=== PATIENT | female | born 1990 | race African-American/Black ===

== ENCOUNTER 2020-02-03 14:57 | Emergency (ER) | payer OTHER ==
--- NOTE | 2020-02-03 15:14 | PDOC ---
Rapid Medical Evaluation Time Seen by Provider: 02/03/20 15:13 Medical Evaluation: 02/03/20 15:13 Pt presents for evaluation of r3rd finger pain and swelling. Denies trauma Exam: TTP and fluctuance to the PIP Orders: x-ray Pt to proceed to the ER for further evaluation Discharge Disposition - Diagnosis Finger pain, right - Referrals - Patient Instructions - Post Discharge Activity
[2020-02-03 15:18] VITALS: BP 114/67; PULSE 95; TEMP 97; BMI 23.3
--- NOTE | 2020-02-03 16:00 | PDOC ---
History of Present Illness - General Chief Complaint: Pain Stated Complaint: LT MIDDLE FINGER SWOLLEN Time Seen by Provider: 02/03/20 15:13 - History of Present Illness Initial Comments: 02/03/20 15:58 29-year-old female no comorbidities presents for left finger pain after slamming her finger in a car door last night Past History - Medical History Allergies/Adverse Reactions: Allergies Allergy/AdvReac Type Severity Reaction Status Date / Time No Known Allergies Allergy Verified 02/03/20 15:18 COPD: No - Reproductive History Is Patient Now?: No - Psycho-Social/Smoking History Smoking History: Never smoked Review of Systems - Review of Systems Musculoskeletal: Yes: See HPI, Joint Pain *Physical Exam - Vital Signs Last Vital Signs Temp Pulse Resp BP Pulse Ox 97 F L 95 H 18 114/67 98 02/03/20 15:16 02/03/20 15:16 02/03/20 15:16 02/03/20 15:16 02/03/20 15:16 - Physical Exam 02/03/20 15:58 Swelling at the left finger middle finger, decreased range of motion FDS and FDP work independently there appears to be a rotational deformity at the DIPJ oth erwise neurovascular intact Medical Decision Making - Medical Decision Making 02/03/20 15:59 There is a comminuted fracture at the middle phalanx. Splint was applied orthopedic hand surgery follow-up was stressed I have reviewed the pathophysiology with the patient. They are in agreement with the treatment plan all questions were answered to their satisfaction. Understanding for follow-up without fail was also conveyed to the patient. Again they are in agreement. Discharge - Discharge Information Problems reviewed: Yes Clinical Impression/Diagnosis: Finger pain, right, Fracture of phalanx of left middle finger Condition: Stable Disposition: HOME - Admission No - Follow up/Referral Referrals: Eladio Elise [Primary Care Provider] - Miguel Mendiola MD [Staff Physician] - - Patient Discharge Instructions Additional Instructions: Tylenol for pain. Avoid anti-inflammatories. Return to the emergency room for further issues and without fail follow-up with orthopedic hand surgery in 1 to 2 days for further evaluation and treatment options. - Post Discharge Activity
== END 2020-02-03 16:32 | disposition home or self-care (01) ==
LOC: JERFT 14:57
DX: M79.644 Pain in right finger(s) (principal)
CPT/HCPCS: 73130-TC-LT-FY; 99284-25

== ENCOUNTER 2020-02-06 13:13 | Day surgery (SDC) | payer OTHER ==
[2020-02-04 16:42] VITALS: BMI 22.4
[2020-02-06] MEDS ORDERED: LIDOCAINE HCL 2% (20ML MULTI-DOSE VIAL) ONE (14:21)
[2020-02-06] MEDS ORDERED: BUPIVACAINE HCL/PF 0.25% (2.5MG/ML) 10 ML VIAL ONE (14:21)
[2020-02-06] MEDS ORDERED: PROPOFOL 20 ML ONE ×2 (14:29)
[2020-02-06] MEDS ORDERED: SUCCINYLCHOLINE CHLORIDE 200 MG/10 ML SYRINGE ONE (14:29)
[2020-02-06] MEDS ORDERED: MIDAZOLAM HCL 2 MG/2 ML SINGLE DOSE VIAL ONE (14:31)
[2020-02-06] MEDS ORDERED: LIDOCAINE HCL/PF 2% SDV 5ML VIAL ONE (15:02)
[2020-02-06] MEDS ORDERED: LIDOCAINE HCL 2% JELLY (5 ML/TUBE) ONE (15:03)
[2020-02-06] MEDS ORDERED: KETOROLAC TROMETHAMINE 30 MG/1 ML VIAL ONE (15:09)
[2020-02-06] MEDS ORDERED: ONDANSETRON 4 MG/2 ML VIAL ONE (15:09)
[2020-02-06] MEDS ORDERED: DEXAMETHASONE SOD PHOSPHATE 4 MG/1 ML VIAL ONE (15:09)
[2020-02-06] MEDS ORDERED: BUPIVACAINE HCL/PF 0.25% (2.5MG/ML) 10 ML VIAL IJ ONE (15:41)
[2020-02-06] MEDS ORDERED: oxyCODONE HCL 5 MG TABLET PO PRN ×2 (16:06)
[2020-02-06] MEDS ORDERED: PROMETHAZINE HCL 25 MG/1 ML VIAL IVPUSH PRN (16:06)
[2020-02-06] MEDS ORDERED: ONDANSETRON 4 MG/2 ML VIAL IVPUSH PRN (16:06)
--- NOTE | 2020-02-06 16:24 | OP ---
DATE OF OPERATION: 02/06/2020 PREOPERATIVE DIAGNOSIS: Left long finger middle phalanx fracture, displaced. POSTOPERATIVE DIAGNOSIS: Left long finger middle phalanx fracture, displaced. OPERATIVE PROCEDURE: Closed reduction, percutaneous pinning of left long finger middle phalanx fracture. SURGEON: Valerie Danielle MD. PIANO PLAYER: SHARON Odonnell. ANESTHESIA: General anesthesia. COMPLICATIONS: None. ESTIMATED BLOOD LOSS: Minimal. INDICATION FOR PROCEDURE: The patient presented with the above findings, indicated for operative treatment. Risks, benefits, and alternatives were discussed with the patient at length. Proper informed consent was obtained. DESCRIPTION OF PROCEDURE: After proper identification of the patient and correct operative site, patient was brought to the operating room and placed supine on the operating room table, all bony prominences well padded. General anesthesia was given timeout procedure was performed. Left upper extremity was prepped and draped in the usual sterile fashion. Closed reduction was performed, obtaining clinically satisfactory alignment as well as radiographically acceptable alignment. A 0.035 K-wire was then placed in the tip of the finger across the DIP joint, securing intramedullary fixation and purchase on the proximal aspect of the middle phalanx, securely holding the fascia. For rotational control, a 2nd wire was placed obliquely across the fracture site. This provided good, stable fixation and satisfactory alignment. Pins were cut short and bent, and sterile dressing was applied. Splint was placed. Patient was reversed from anesthesia, brought to recovery in stable condition. Davy Massey, the clinical services assistant, was integral throughout the procedure. He was necessary to hold reduction while pins were placed. This could not have been done without a skilled operative clinical services assistant. VALERIE DANIELLE M.D. [id number]
[2020-02-06] MEDS ORDERED: oxyCODONE HCL 5 MG TABLET ONE (16:53)
[2020-02-06 17:20] VITALS: BP 103/64; PULSE 58; TEMP 98
--- OUTSIDE RECORDS SUMMARY | 2020-02-06 19:09 | XMS ---
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 0.6 % 0.0 - Normal (applies Immature [facility] Granulocytes % 0.8 % to non-numeric Granulocytes % [facility] results) System ID Date Data Source [id number] 06/26/2017 02:10:00 PM EST [facility] System Name Value Range Interpretation Description Data Sup porting Code Source(s) Document(s ) pH 7.366 7.350 - Normal (applies pH [facility] {pH_unit 7.450 pH to non-numeric Health s} units results) System Carbon dioxide 39.1 32.0 - Normal (applies pCO2, [facility] [Partial {mm_Hg} 45.0 mm to non-numeric Arterial Health pressure] in Hg results) System Arterial blood Bicarbonate 21.9 20.0 - Normal (applies HCO3 [facility] [Moles/volume] mmol/L 26.0 to non-numeric Health in Venous mmol/L results) System blood Base Excess. -2.6 -3 - +3 Below low normal Base Excess. [facility] mmol/L mmol/L Health System ID Date Data Source [id number] 06/26/2017 02:10:00 PM M[facility]IC[facility] System Name Value Range Interpretation Description Data Sup porting Code Source(s) Document(s ) pH 7.303 7.350 - Below low normal pH [facility] {pH_unit 7.450 pH Health s} units System Carbon dioxide 48.4 32.0 - Above high normal pCO2, [facility] [Partial {mm_Hg} 45.0 mm Arterial Health pressure] in Hg System Arterial blood Bicarbonate 23.2 20.0 - Normal (applies HCO3 [facility] [Moles/volume] mmol/L 26.0 to non-numeric Health in Venous mmol/L results) System blood Base Excess. -2.2 -3 - +3 Below low normal Base Excess. [facility] mmol/L mmol/L Health System ID Date Data Source [id number] 06/26/2017 02:10:00 PM [facility] System Name Value Range Interpretation Description Data Sup porting Code Source(s) Document(s ) Type O Normal (applies Type [facility] to non-numeric Health System results) D Ab [Titer] Positive Normal (applies Rh [facility] in Serum or to non-numeric Health System Plasma results) Antibody Negative Normal (applies Antibody [facility] Screen to non-numeric Screen Health System results) ID Date Data Source [id number] 06/26/2017 02:10:00 PM EST [facility] System Name Value Range Interpretation Description Data Sup porting Code Source(s) Document(s ) HIV test, Negative Normal (applies to HIV test, [facility] RAPID non-numeric RAPID Health System (antibody results) (antibody testing testing only) only) PLEASE NOTE:If rapid HIV test is negativ e, this is a final report.If rapid HIV test is positive: THIS IS A PRELIMINARY REPO RT - CONFIRMATION IS PENDING.Confirmed results must be considered in making a d iagnosis related to HIV infection. ID Date Data Source [id number] 06/26/2017 02:10:00 PM EST [facility] System Name Value Range Interpretation Description Data Sup porting Code Source(s) Document(s ) Color Yellow Yellow Normal (applies Color [facility] to non-numeric Health results) System Appearance of HAZY Clear Normal (applies Urine [facility] Urine to non-numeric Appearance Health results) System Specific 1.008 1.001 - Normal (applies Urine Specific [facility] gravity of 1.035 to non-numeric [facility] Urine results) System pH.. 7.0 4.6 - 8.0 Normal (applies pH.. [facility] {pH_unit pH units to non-numeric Health s} results) System Glucose, UA NEG < 50 mg/dl Normal (applies Glucose, UA [facility] to non-numeric Health results) System Protein NEG < 30 mg/dl Normal (applies Protein [facility] [Mass/volume] to non-numeric Health in Serum or results) System Plasma Bilirubin NEG Negative Normal (applies Bilirubin [facility] Urine Sm to Lg to non-numeric Urine Health results) System Urobilinogen < 2.0 Normal (applies Urobilinogen [facility] [Mass/volume] to non-numeric UA Health in Urine results) System Reference Range: Negative or <=2.0 Ketones > =80 <TR mg/dL Abnormal Ketones UA [facility] [Mass/volume] in (applies to Health Syst em Urine non-numeric results) Nitrate+Nitrite Negative Negative Normal (applies Nitrite [facility] [Mass/volume] in Neg/Pos to non-numeric Health S ystem Unspecified results) specimen Leukocyte NEG Negative Tr Normal (applies Leukocyte [facility] esterase to Lg to non-numeric Esterase Health System [Units/volume] in results) Concentration Urine Leukocytes 3 {/HPF} 0 - 2 /HPF Normal (applies White Blood [facility] [#/volume] in to non-numeric Cells Health Syst em Unspecified results) specimen by Automated count Red Blood Cells 1 {/HPF} 0 - 1 /HPF Normal (applies Red Blood Cells [facility] to non-numeric Health System results) Epithelial cells 20 {/HPF} 0 - 3 /HPF Normal (applies Epithelial Megan ls [facility] [Presence] in to non-numeric Health Syst em Unspecified results) specimen by Wet preparation Hyaline casts 3 {/LPF} 0 - 1 /LPF Abnormal Hyaline Casts [facility] [#/area] in Urine (applies to Health Sys tem sediment by non-numeric Microscopy high results) power field Mucus RARE 0 - 1 /LPF Normal (applies Mucus [facility] to non-numeric Health System results) Bacteria FEW 0 - 5 /HPF Normal (applies Bacteria [facility] [Presence] in to non-numeric Health Syst em Unspecified results) specimen Urine Blood NEG Negative Sm Normal (applies Urine Blood [facility] to Lg to non-numeric Health System results) ID Date Data Source [id number] 06/26/2017 02:10:00 PM EST [facility] System Name Value Range Interpretation Description Data Sup porting Code Source(s) Document(s ) aPTT in Blood 24.4 25.1 - Below low normal Activated [facility] by {Second 36.5 Partial Health Coagulation s} Seconds Thromboplastin System assay Time ID Date Data Source [id number] 06/26/2017 02:10:00 PM EST [facility] System Name Value Range Interpretation Description Data Sup porting Code Source(s) Document(s ) Prothrombin 11.20 10.00 - Normal (applies Prothrombin [facility] time (PT) {seconds 13.60 to non-numeric time (PT) Health } seconds results) System INR in Blood 0.99 0.70 - Normal (applies INR Result [facility] by Coagulation {Ratio} 1.10 to non-numeric Health assay Ratio results) System Normal = 0.7-1.1Therapeutic = 2.0-3.0Mec hanical Heart = 3.0-4.5 ID Date Data Source [id number] 06/26/2017 02:10:00 PM EST [facility] System Name Value Range Interpretation Description Data Sup porting Code Source(s) Document(s ) Leukocytes 6.2 4.8 - Normal (applies WBC Count [facility] [#/volume] in {10^3_u 10.8 to non-numeric Health Unspecified L} 10^3 uL results) System specimen by Automated count Erythrocytes 3.25 4.20 - Below low normal RBC Count [facility] [#/volume] in {10^6_u 5.40 Health Blood by L} 10^6 uL System Automated count Hemoglobin 8.7 12.0 - Below low normal Hemoglobin [facility] [Mass/volume] in {gm/dL} 16.0 Health Blood gm/dL System Hematocrit 28.8 % 37.0 - Below low normal Hematocrit [facility] [Volume 47.0 % Health Fraction] of System Blood Erythrocyte mean 88.6 fl 81.0 - Normal (applies MCV [facility] corpuscular 99.0 fl to non-numeric Health volume [Entitic results) System volume] by Automated count Erythrocyte mean 26.8 pg 27.0 - Below low normal MCH [facility] corpuscular 31.0 pg Health hemoglobin System [Entitic mass] by Automated count Erythrocyte mean 30.2 30.0 - Normal (applies MCHC [facility] corpuscular {gm/dL} 35.0 to non-numeric Health hemoglobin gm/dL results) System concentration [Mass/volume] by Automated count Erythrocyte 15.7 % 11.5 - Above high RDW-CV [facility] distribution 14.5 % normal Health width [Entitic System volume] by Automated count Platelets 176 130 - Normal (applies Platelet Count [facility] [#/volume] in {10^3_u 400 to non-numeric Health Plasma by L} 10^3 uL results) System Automated count Platelet mean 10.7 fl 8.6 - Normal (applies MPV [facility] volume [Entitic 13.5 fl to non-numeric Health volume] in Blood results) System by Automated count Nucleated 0.0 0.0 - Normal (applies NRBC % [facility] erythrocytes {/100_W 0.2 to non-numeric Health [#/volume] in BC} /100 results) System Body fluid WBC NRBC # 0.00 0.00 - Normal (applies NRBC # [facility] {10^3_u 0.01 to non-numeric Health L} 10^3 uL results) System Neutrophils/100 68.1 % 55.0 - Normal (applies Neutrophil % [facility]pidio tabitha leukocytes in 75.0 % to non-numeric Health Blood by results) System Automated count Neutrophils 4.2 Normal (applies Neutrophil # [facility] [#/volume] in {10^3_u to non-numeric Health Body fluid L} results) System Lymphocytes 20.8 % 15.0 - Normal (applies Lymphocyte % [facility] [#/volume] in 41.0 % to non-numeric Health Blood by results) System Automated count Lymphocyte # 1.3 1.0 - Normal (applies Lymphocyte # [facility] {10^3_u 4.8 to non-numeric Health L} 10^3 uL results) System Monocytes/100 9.8 % 2.0 - Above high Monocyte % [facility] leukocytes in 9.0 % normal Health Blood System Monocytes 0.6 Normal (applies Monocyte # [facility] [#/volume] in {10^3_u to non-numeric Health Blood by Manual L} results) System count Eosinophils/100 0.2 % 0.0 - Normal (applies Eosinophil % [facility] tabitha leukocytes in 5.0 % to non-numeric Health Unspecified results) System specimen Eosinophils 0.01 0.00 - Normal (applies Eosinophil # [facility] [#/volume] in {10^3_u 0.50 to non-numeric Health Blood L} 10^3 uL results) System Basophils/100 0.3 % 0.0 - Normal (applies Basophil % [facility] leukocytes in 1.0 % to non-numeric Health Unspecified results) System specimen by Manual count Basophils 0.02 0.00 - Normal (applies Basophil # [facility] [#/volume] in {10^3_u 0.10 to non-numeric Health Blood by L} 10^3 uL results) System Automated count Immature 0.05 0.00 - Normal (applies Immature [facility] Granulocytes # {10^3_u 0.09 to non-numeric Granulocytes # Healt h L} 10^3 uL results) System Immature 0.8 % 0.0 - Normal (applies Immature [facility] Granulocytes % 0.8 % to non-numeric Granulocytes % [facility] results) System ID Date Data Source [id number] 06/26/2017 02:10:00 PM EST [facility] System Name Value Range Interpretation Description Data Sup porting Code Source(s) Document(s ) Sodium 137 135 - Normal (applies Sodium, Serum [facility] [Moles/volume] in mmol/L 145 to non-numeric Health Serum or Plasma mmol/L results) System Potassium 3.9 3.5 - Normal (applies Potassium, [facility] [Mass/volume] in mmol/L 5.0 to non-numeric Serum Health Serum or Plasma mmol/L results) System Chloride 105 101 - Normal (applies Chloride, [facility] [Moles/volume] in mmol/L 111 to non-numeric Serum Health Serum or Plasma mmol/L results) System Carbon dioxide, 22.8 21.0 - Normal (applies CO2, Serum [facility] total mmol/L 31.0 to non-numeric Health [Moles/volume] in mmol/L results) System Serum or Plasma Total Protein 6.4 6.4 - Normal (applies Total Protein [facility] mg/dl 8.1 to non-numeric Health mg/dl results) System Glucose 73 65 - Normal (applies Glucose, [facility] [Mass/volume] in mg/dL 110 to non-numeric Serum Health Serum or Plasma mg/dL results) System Urea nitrogen 4 mg/dl 7 - 18 Below low normal Blood Urea [facility] [Mass/volume] in mg/dl Nitrogen, Health Serum or Plasma Serum System Creatinine 0.37 0.50 - Below low normal Creatinine, [facility] [Mass/volume] in mg/dl 1.20 Serum Health Serum or Plasma mg/dl System Alkaline 165 42 - Above high Alkaline [facility] phosphatase {IU/L} 121 normal Phosphatase, Health isoenzymes IU/L Serum System [Enzymatic activity/volume] in Serum or Plasma by Heat stability Bilirubin.total 0.5 0.2 - Normal (applies Bilirubin, [facility] [Mass/volume] in mg/dl 1.2 to non-numeric Serum Total Health Serum or Plasma mg/dl results) System Direct Bilirubin 0.1 0.0 - Normal (applies Direct [facility] mg/dl 0.4 to non-numeric Bilirubin Health mg/dl results) System Aspartate 16 10 - 42 Normal (applies Aspartate [facility] aminotransferase {IU/L} IU/L to non-numeric Transaminase, Heal th [Enzymatic results) Serum System activity/volume] in Serum or Plasma by With P-5'-P Albumin 3.4 3.2 - Normal (applies Albumin, [facility] [Mass/volume] in {gm/dl} 5.5 to non-numeric Serum Health Serum or Plasma gm/dl results) System I. Phosphorus 3.5 2.6 - Normal (applies I. Phosphorus [facility] mg/dl 4.9 to non-numeric Health mg/dl results) System Alanine 10 10 - 42 Normal (applies Alanine [facility] aminotransferase {IU/L} IU/L to non-numeric Aminotransfer Heal th [Enzymatic results) ase, Serum System activity/volume] in Serum or Plasma Calcium 8.5 8.4 - Normal (applies Calcium, [facility] [Mass/volume] in mg/dl 10.2 to non-numeric Total Serum Health Serum or Plasma mg/dl results) System A/G Ratio 1.13 Normal (applies A/G Ratio [facility] to non-numeric Health results) System Urate 3.7 2.3 - Normal (applies Uric Acid, [facility] [Mass/volume] in mg/dl 7.5 to non-numeric Serum Health Serum or Plasma mg/dl results) System Anion gap in Serum 9.20 Normal (applies Anion Gap Elpidio tabitha or Plasma mmol/L to non-numeric Health results) System Glomerular > 90 Normal (applies GFR [facility] filtration to non-numeric Health rate/1.73 sq results) System M.predicted [Volume Rate/Area] in Serum or Plasma by Creatinine-based formula (CKD-EPI) eGFR will provide clinicians with a more accurate indicator of renal function then the serum creatinine. The eGFR is automa tically calculated from an empiric formula (endorsed by the [employer] ion) which incorporates age, sex, and race.Clinicians may notice surprisingly low GFR's with serum creatinine valueswithin normal range- particularly in elderly wo men (with low muscle mass).In the hospital setting, the eGFR should add an element of safety in drug dosing, in assessing the risk of IV contrast administration, and in assessing vascular risk.The NKF staging system is as follows:Normal: eGFR >90 with no kidney markersStage 1: eGFR >90 with kidney markers*Stage 2: eGFR 60- 89Stage 3: eGFR 30-59Stage 4: eGFR 15-29Stage 5: eGFR <15 (usually requir ing dialysis)*Markers include: Proteinuria, Hematuria, abnormal imaging-studies, or other blood or urine test abnormalities ID Date Data Source [id number] 06/26/2017 02:10:00 PM EST [facility] System Name Value Range Interpretation Description Data Source(s ) Supporting Code Document(s ) Reagin Ab Non-react Normal (applies to RPR. [facility] [Presence] scott non-numeric Health System in Serum by results) RPR ID Date Data Source [id number] 10/24/2016 06:26:00 PM EDT [facility] System Name Value Range Interpretation Description Data Sup porting Code Source(s) Document(s ) hCG 2126.84 Normal (applies hCG [facility] Quantitative {mIU/mL} to non-numeric Quantitative Health results) System Negative = <5 mIU/mLAPPROXIMATE GEST. AG E APPROXIMATE HCG mIU/ML 0.2 - 1 week 5 - 50 1 - 2 w eeks 50 - 500 2 - 3 weeks 100 - 5,000 3 - 4 weeks 500 - 10,000 4 - 5 weeks 1,000 - 50,000 5 - 6 weeks 10,000 - 100,000 6 - 8 weeks 15,000 - 200,000 8 - 12 weeks 10,000 - 1 00,000HCG levels between 5-25 mIU/mL may be indicative of early . Correlati on with other clinical findings and/or repeat of HCG quantitative testing recommened. ID Date Data Source [id number] 10/24/2016 04:55:00 PM EDT [facility] System Name Value Range Interpretation Description Data Sup porting Code Source(s) Document(s ) Deprecated Micro Normal (applies Aerobic [facility] Bacteria Result to non-numeric Culture, Urine Health identified in Final results) System Urine by Culture Aerobe Reading culture Note::< 10,000 CFU/ML ID Date Data Source [id number] 10/24/2016 04:55:00 PM EDT [facility] System Name Value Range Interpretation Description Data Sup porting Code Source(s) Document(s ) Color YELLOW Yellow Normal (applies Color [facility] to non-numeric Health results) System Appearance of CLEAR Clear Normal (applies Urine [facility] Urine to non-numeric Appearance Health results) System Specific > 1.030 Normal (applies Urine Specific [facility] gravity of to non-numeric [facility] Urine results) System pH.. 6.0 4.6 - 8.0 Normal (applies pH.. [facility] {pH_units} pH units to non-numeric Health results) System Glucose, UA NEGATIVE < 50 Normal (applies Glucose, UA [facility] mg/dl to non-numeric Health results) System Protein TRACE < 30 Normal (applies Protein [facility] [Mass/volume] mg/dl to non-numeric Health in Serum or results) System Plasma Bilirubin NEGATIVE Negative Normal (applies Bilirubin [facility] Urine Sm to Lg to non-numeric Urine Health results) System Urobilinogen 0.2 mg/dL 0.2 - 1.0 Normal (applies Urobilinogen [facility] [Mass/volume] mg/dL to non-numeric UA Health in Urine results) System Ketones NEGATIVE Negative Normal (applies Ketones UA [facility] [Mass/volume] mg/dL to non-numeric Health in Urine results) System Nitrate+Nitrit NEGATIVE Negative Normal (applies Nitrite [facility] e Neg/Pos to non-numeric Health [Mass/volume] results) System in Unspecified specimen Leukocyte NEGATIVE Negative Normal (applies Leukocyte [facility] esterase Tr to Lg to non-numeric Esterase Health [Units/volume] results) Concentration System in Urine Leukocytes 3 {/HPF} 0 - 2 Normal (applies White Blood [facility] [#/volume] in /HPF to non-numeric Cells Health Unspecified results) System specimen by Automated count Red Blood 2 {/HPF} 0 - 1 Normal (applies Red Blood [facility] Cells /HPF to non-numeric Cells Health results) System Epithelial 5 {/HPF} 0 - 3 Normal (applies Epithelial [facility] cells /HPF to non-numeric Cells Health [Presence] in results) System Unspecified specimen by Wet preparation Mucus 2+ 0 - 1 Normal (applies Mucus [facility] /LPF to non-numeric Health results) System Urine Blood NEGATIVE Negative Normal (applies Urine Blood [facility] Sm to Lg to non-numeric Health results) System ID Date Data Source [id number] 10/24/2016 04:55:00 PM EDT [facility] Name Value Range Interpretation Description Data Sup porting Code Source(s) Document(s ) Leukocytes 6.9 4.8 - Normal (applies WBC Count [facility] [#/volume] in {10^3_u 10.8 to non-numeric Health Unspecified L} 10^3 uL results) System specimen by Automated count Erythrocytes 3.48 3.80 - Below low normal RBC Count [facility] [#/volume] in {10^6_u 5.20 Health Blood by L} 10^6 uL System Automated count Hemoglobin 11.7 12.0 - Below low normal Hemoglobin [facility] [Mass/volume] in {gm/dL} 16.0 Health Blood gm/dL System Hematocrit 33.7 % 36.0 - Below low normal Hematocrit [facility] [Volume 46.0 % Health Fraction] of System Blood Erythrocyte mean 96.8 fl 83.0 - Normal (applies MCV [facility] corpuscular 98.0 fl to non-numeric Health volume [Entitic results) System volume] by Automated count Erythrocyte mean 33.6 pg 26.0 - Normal (applies MCH [facility] corpuscular 34.0 pg to non-numeric Health hemoglobin results) System [Entitic mass] by Automated count Erythrocyte mean 34.7 33.0 - Normal (applies MCHC [facility] corpuscular {gm/dL} 37.0 to non-numeric Health hemoglobin gm/dL results) System concentration [Mass/volume] by Automated count Erythrocyte 12.2 % 11.5 - Normal (applies RDW-CV [facility] distribution 14.5 % to non-numeric Health width [Entitic results) System volume] by Automated count Platelets 288 130 - Normal (applies Platelet Count [facility] [#/volume] in {10^3_u 400 to non-numeric Health Plasma by L} 10^3 uL results) System Automated count Platelet mean 10.9 fl 7.4 - Above high MPV [facility] volume [Entitic 10.4 fl normal Health volume] in Blood System by Automated count Monocytes 0.7 0.3 - Normal (applies Monocyte # [facility] [#/volume] in {10^3_u 0.9 to non-numeric Health Blood by Manual L} 10^3 uL results) System count Eosinophils 0.11 0.05 - Normal (applies Eosinophil # [facility] [#/volume] in {10^3_u 0.30 to non-numeric Health Blood L} 10^3 uL results) System Neutrophils 4.3 2.0 - Normal (applies Neutrophil # [facility] [#/volume] in {10^3_u 8.1 to non-numeric Health Body fluid L} 10^3 uL results) System Basophils 0.02 0.00 - Normal (applies Basophil # [facility] [#/volume] in {10^3_u 0.10 to non-numeric Health Blood by L} 10^3 uL results) System Automated count Lymphocyte # 1.8 1.0 - Normal (applies Lymphocyte # [facility] {10^3_u 5.5 to non-numeric Health L} 10^3 uL results) System Neutrophils/100 62.1 % 55.0 - Normal (applies Neutrophil % [facility] tabitha leukocytes in 75.0 % to non-numeric Health Blood by results) System Automated count Monocytes/100 9.9 % Normal (applies Monocyte % [facility] leukocytes in to non-numeric Health Blood results) System Eosinophils/100 1.6 % 0.0 - Normal (applies Eosinophil % [facility] tabitha leukocytes in 4.0 % to non-numeric Health Unspecified results) System specimen Basophils/100 0.3 % 0.0 - Normal (applies Basophil % [facility] leukocytes in 1.0 % to non-numeric Health Unspecified results) System specimen by Manual count Lymphocytes 25.8 % 21.0 - Normal (applies Lymphocyte % [facility] [#/volume] in 51.0 % to non-numeric Health Blood by results) System Automated count Immature 0.3 % 0.0 - Normal (applies Immature [facility] Granulocytes % 0.8 % to non-numeric Granulocytes % Healt h results) System Nucleated 0.0 0.0 - Normal (applies NRBC % [facility] erythrocytes {/100_W 0.0 to non-numeric Health [#/volume] in BC} /100 results) System Body fluid WBC Immature 0.02 0.00 - Normal (applies Immature [facility] Granulocytes # {10^3_u 0.09 to non-numeric Granulocytes # Healt h L} 10^3 uL results) System NRBC # 0.00 0.90 - Below low normal NRBC # [facility] {10^3_u 11.20 Health L} 10^3 uL System ID Date Data Source [id number] 10/24/2016 04:55:00 PM EDT [facility] System Name Value Range Interpretation Description Data Sup porting Code Source(s) Document(s ) Sodium 137 137 - Normal (applies Sodium, Serum [facility] [Moles/volume] in mmol/L 145 to non-numeric Health Serum or Plasma mmol/L results) System Potassium 4.1 3.6 - Normal (applies Potassium, [facility] [Mass/volume] in mmol/L 5.0 to non-numeric Serum Health Serum or Plasma mmol/L results) System Chloride 104 98 - Normal (applies Chloride, [facility] [Moles/volume] in mmol/L 107 to non-numeric Serum Health Serum or Plasma mmol/L results) System Carbon dioxide, 25.0 22.0 - Normal (applies CO2, Serum [facility] total mmol/L 30.0 to non-numeric Health [Moles/volume] in mmol/L results) System Serum or Plasma Total Protein 6.9 6.3 - Normal (applies Total Protein [facility] mg/dl 8.2 to non-numeric Health mg/dl results) System Glucose 92 65 - Normal (applies Glucose, [facility] [Mass/volume] in mg/dL 105 to non-numeric Serum Health Serum or Plasma mg/dL results) System Urea nitrogen 11 7 - 18 Normal (applies Blood Urea [facility] [Mass/volume] in mg/dl mg/dl to non-numeric Nitrogen, Health Serum or Plasma results) Serum System Creatinine 0.90 0.70 - Normal (applies Creatinine, [facility] [Mass/volume] in mg/dl 1.20 to non-numeric Serum Health Serum or Plasma mg/dl results) System Alkaline 72 38 - Normal (applies Alkaline [facility] phosphatase {IU/L} 126 to non-numeric Phosphatase, Health isoenzymes IU/L results) Serum System [Enzymatic activity/volume] in Serum or Plasma by Heat stability Bilirubin direct 0.3 0.2 - Normal (applies Bilirubin, [facility] and total panel mg/dl 1.3 to non-numeric Serum Total [facility] [Mass/volume] - mg/dl results) System Serum or Plasma Direct Bilirubin 0.2 0.0 - Normal (applies Direct [facility] mg/dl 0.4 to non-numeric Bilirubin [facility] mg/dl results) System Aspartate 13 5 - 40 Normal (applies Aspartate [facility] aminotransferase {IU/L} IU/L to non-numeric Transaminase, [facility]al [facility] [Enzymatic results) Serum System activity/volume] in Serum or Plasma by With P-5'-P Albumin 4.0 3.9 - Normal (applies Albumin, [facility] [Mass/volume] in {gm/dl} 5.0 to non-numeric Serum [facility] Serum or Plasma gm/dl results) System I. Phosphorus 3.5 2.5 - Normal (applies I. Phosphorus [facility] mg/dl 4.5 to non-numeric [facility] mg/dl results) System Alanine 11 7 - 56 Normal (applies Alanine [facility] aminotransferase {IU/L} IU/L to non-numeric Aminotransfer [facility] [Enzymatic results) ase, Serum System activity/volume] in Serum or Plasma Calcium 8.8 8.4 - Normal (applies Calcium, [facility] [Mass/volume] in mg/dl 10.2 to non-numeric Total Serum [facility] Serum or Plasma mg/dl results) System A/G Ratio 1.38 Normal (applies A/G Ratio [facility] to non-numeric Health results) System Urate 4.1 2.5 - Normal (applies Uric Acid, [facility] [Mass/volume] in mg/dl 7.5 to non-numeric Serum Health Serum or Plasma mg/dl results) System Anion gap in Serum 8.00 8.00 - Normal (applies Anion Gap Elpidio tabitha or Plasma mmol/L 12.00 to non-numeric Health mmol/L results) System Glomerular 76.38 Normal (applies GFR [facility] filtration to non-numeric Health rate/1.73 sq results) System M.predicted [Volume Rate/Area] in Serum or Plasma by Creatinine-based formula (CKD-EPI) eGFR will provide clinicians with a more accurate indicator of renal function then the serum creatinine. The eGFR is automa tically calculated from an empiric formula (endorsed by the [employer] ion) which incorporates age, sex, and race.Clinicians may notice surprisingly low GFR's with serum creatinine valueswithin normal range- particularly in elderly wo men (with low muscle mass).In the hospital setting, the eGFR should add an element of safety in drug dosing, in assessing the risk of IV contrast administration, and in assessing vascular risk.The NKF staging system is as follows:Normal: eGFR >90 with no kidney markersStage 1: eGFR >90 with kidney markers*Stage 2: eGFR 60- 89Stage 3: eGFR 30-59Stage 4: eGFR 15-29Stage 5: eGFR <15 (usually requir ing dialysis)*Markers include: Proteinuria, Hematuria, abnormal imaging-studies, or other blood or urine test abnormalities ID Date Data Source [id number] 07/20/2015 11:42:00 PM EDT [facility] System Name Value Range Interpretation Description Data Sup porting Code Source(s) Document(s ) Color YELLOW Yellow Normal (applies Color [facility] to non-numeric [facility] results) System Appearance of CLEAR Clear Normal (applies Urine [facility] Urine to non-numeric Appearance Health results) System Specific 1.025 Normal (applies Urine Specific [facility] gravity of to non-numeric [facility] Urine results) System pH.. 6.0 4.6 - 8.0 Normal (applies pH.. [facility] {pH_units} pH units to non-numeric Health results) System Glucose, UA NEGATIVE < 50 Normal (applies Glucose, UA [facility] mg/dl to non-numeric Health results) System Protein NEGATIVE < 30 Normal (applies Protein [facility] [Mass/volume] mg/dl to non-numeric Health in Serum or results) System Plasma Bilirubin NEGATIVE Negative Normal (applies Bilirubin [facility] Urine Sm to Lg to non-numeric Urine Health results) System Urobilinogen 0.2 mg/dL Normal (applies Urobilinogen [facility] [Mass/volume] to non-numeric UA Health in Urine results) System Ketones 15 Negative Abnormal Ketones UA [facility] [Mass/volume] {Tr_to_Lg} Tr to Lg (applies to Health in Urine non-numeric System results) Nitrate+Nitrit NEGATIVE Negative Normal (applies Nitrite [facility] Neg/Pos to non-numeric Health [Mass/volume] results) System in Unspecified specimen Leukocyte NEGATIVE Negative Normal (applies Leukocyte [facility] esterase Tr to Lg to non-numeric Esterase Health [Units/volume] results) Concentration System in Urine Leukocytes 0-2 0 - 2 Normal (applies White Blood [facility] [#/volume] in /HPF to non-numeric Cells Health Unspecified results) System specimen by Automated count Red Blood 0-2 0 - 1 Normal (applies Red Blood [facility] Cells /HPF to non-numeric Cells Health results) System Urine Blood NEGATIVE Normal (applies Urine Blood [facility] to non-numeric Health results) System ID Date Data Source [id number] 07/20/2015 11:42:00 PM EDT [facility] Name Value Range Interpretation Description Data Sup porting Code Source(s) Document(s ) Leukocytes 4.8 4.8 - Normal (applies WBC Count [facility] [#/volume] in {10^3_uL 10.8 to non-numeric Health Unspecified } 10^3 uL results) System specimen by Automated count Erythrocytes 3.95 3.80 - Normal (applies RBC Count [facility] [#/volume] in {10^6_uL 5.20 to non-numeric Health Blood by } 10^6 uL results) System Automated count Hemoglobin 13.4 12.0 - Normal (applies Hemoglobin [facility] [Mass/volume] in {gm/dL} 16.0 to non-numeric Health Blood gm/dL results) System Hematocrit 38.4 % 36.0 - Normal (applies Hematocrit [facility] [Volume 46.0 % to non-numeric Health Fraction] of results) System Blood Erythrocyte mean 97.2 fl 80.0 - Normal (applies MCV [facility] corpuscular 100.0 to non-numeric Health volume [Entitic fl results) System volume] by Automated count Erythrocyte mean 33.9 pg 26.0 - Normal (applies MCH [facility] corpuscular 34.0 pg to non-numeric Health hemoglobin results) System [Entitic mass] by Automated count Erythrocyte mean 34.9 33.0 - Normal (applies MCHC [facility] corpuscular {gm/dL} 37.0 to non-numeric Health hemoglobin gm/dL results) System concentration [Mass/volume] by Automated count Erythrocyte 12.8 % 11.5 - Normal (applies RDW-CV [facility] distribution 14.5 % to non-numeric Health width [Entitic results) System volume] by Automated count Platelets 211 130 - Normal (applies Platelet [facility] [#/volume] in {10^3_uL 400 to non-numeric Count Health Plasma by } 10^3 uL results) System Automated count Platelet mean 10.2 fl 7.4 - Normal (applies MPV [facility] volume [Entitic 10.4 fl to non-numeric Health volume] in Blood results) System by Automated count Monocytes 0.5 0.3 - Normal (applies Monocyte # [facility] [#/volume] in {10^3_uL 0.9 to non-numeric Health Blood by Manual } 10^3 uL results) System count Eosinophils 0.02 0.05 - Below low normal Eosinophil # [facility] [#/volume] in {10^3_uL 0.30 Health Blood } 10^3 uL System Neutrophils 3.6 2.0 - Normal (applies Neutrophil # [facility] [#/volume] in {10^3_uL 8.1 to non-numeric Health Body fluid } 10^3 uL results) System Basophils 0.00 0.00 - Normal (applies Basophil # [facility] [#/volume] in {10^3_uL 0.10 to non-numeric Health Blood by } 10^3 uL results) System Automated count Lymphocyte # 0.7 1.0 - Below low normal Lymphocyte # [facility] {10^3_uL 5.5 Health } 10^3 uL System Neutrophils/100 74.9 % 0.0 - Normal (applies Neutrophil % Elpidio tabitha leukocytes in 120.0 % to non-numeric Health Blood by results) System Automated count Monocytes/100 10.8 % Normal (applies Monocyte % [facility] leukocytes in to non-numeric [facility] Blood results) System Eosinophils/100 0.4 % 1.0 - Below low normal Eosinophil % [facility] leukocytes in 3.0 % [facility] Unspecified System specimen Basophils/100 0.0 % 0.0 - Normal (applies Basophil % [facility] leukocytes in 1.0 % to non-numeric Health Unspecified results) System specimen by Manual count Lymphocytes 13.9 % 21.0 - Below low normal Lymphocyte % [facility] [#/volume] in 51.0 % Health Blood by System Automated count ID Date Data Source [id number] 07/20/2015 11:42:00 PM EDT [facility] System Name Value Range Interpretation Description Data Sup porting Code Source(s) Document(s ) Sodium 137 137 - Normal (applies Sodium, Serum [facility] [Moles/volume] in mmol/L 145 to non-numeric Health Serum or Plasma mmol/L results) System Potassium 3.8 3.6 - Normal (applies Potassium, [facility] [Mass/volume] in mmol/L 5.0 to non-numeric Serum [facility] Serum or Plasma mmol/L results) System Chloride 105 98 - Normal (applies Chloride, [facility] [Moles/volume] in mmol/L 107 to non-numeric Serum Health Serum or Plasma mmol/L results) System Carbon dioxide, 23.0 22.0 - Normal (applies CO2, Serum [facility] total mmol/L 30.0 to non-numeric [facility] [Moles/volume] in mmol/L results) System Serum or Plasma Total Protein 7.3 6.3 - Normal (applies Total Protein [facility] mg/dl 8.2 to non-numeric Health mg/dl results) System Glucose 94 65 - Normal (applies Glucose, [facility] [Mass/volume] in mg/dL 105 to non-numeric Serum Health Serum or Plasma mg/dL results) System Urea nitrogen 11 7 - 18 Normal (applies Blood Urea [facility] [Mass/volume] in mg/dl mg/dl to non-numeric Nitrogen, Health Serum or Plasma results) Serum System Creatinine 0.72 0.70 - Normal (applies Creatinine, [facility] [Mass/volume] in mg/dl 1.20 to non-numeric Serum [facility] Serum or Plasma mg/dl results) System Alkaline 78 38 - Normal (applies Alkaline [facility] phosphatase {IU/L} 126 to non-numeric Phosphatase, [facility] isoenzymes IU/L results) Serum System [Enzymatic activity/volume] in Serum or Plasma by Heat stability Bilirubin.total 1.1 0.2 - Normal (applies Bilirubin, [facility] [Mass/volume] in mg/dl 1.3 to non-numeric Serum Total [facility] Serum or Plasma mg/dl results) System Direct Bilirubin 0.4 0.0 - Normal (applies Direct [facility] mg/dl 0.4 to non-numeric Bilirubin [facility] mg/dl results) System Aspartate 16 5 - 40 Normal (applies Aspartate [facility] aminotransferase {IU/L} IU/L to non-numeric Transaminase, [facility] [Enzymatic results) Serum System activity/volume] in Serum or Plasma by With P-5'-P Albumin 4.1 3.9 - Normal (applies Albumin, [facility] [Mass/volume] in {gm/dl} 5.0 to non-numeric Serum [facility] Serum or Plasma gm/dl results) System I. Phosphorus 3.1 2.5 - Normal (applies I. Phosphorus [facility] mg/dl 4.5 to non-numeric Health mg/dl results) System Alanine 12 7 - 56 Normal (applies Alanine [facility] aminotransferase {IU/L} IU/L to non-numeric Aminotransfer [facility] [Enzymatic results) ase, Serum System activity/volume] in Serum or Plasma Calcium 8.8 8.4 - Normal (applies Calcium, [facility] [Mass/volume] in mg/dl 10.2 to non-numeric Total Serum [facility] Serum or Plasma mg/dl results) System A/G Ratio 1.28 Normal (applies A/G Ratio [facility] to non-numeric Health results) System Urate 4.3 2.5 - Normal (applies Uric Acid, [facility] [Mass/volume] in mg/dl 7.5 to non-numeric Serum Health Serum or Plasma mg/dl results) System Anion gap in Serum 9.00 8.00 - Normal (applies Anion Gap [facility] tabitha or Plasma mmol/L 12.00 to non-numeric Health mmol/L results) System Glomerular > 90 Normal (applies GFR [facility] filtration to non-numeric Health rate/1.73 sq results) System M.predicted [Volume Rate/Area] in Serum or Plasma by Creatinine-based formula (CKD-EPI) eGFR will provide clinicians with a more accurate indicator of renal function then the serum creatinine. The eGFR is automa tically calculated from an empiric formula (endorsed by the [employer] ion) which incorporates age, sex, and race.Clinicians may notice surprisingly low GFR's with serum creatinine valueswithin normal range- particularly in elderly wo men (with low muscle mass).In the hospital setting, the eGFR should add an element of safety in drug dosing, in assessing the risk of IV contrast administration, and in assessing vascular risk.The NKF staging system is as follows:Normal: eGFR >90 with no kidney markersStage 1: eGFR >90 with kidney markers*Stage 2: eGFR 60- 89Stage 3: eGFR 30-59Stage 4: eGFR 15-29Stage 5: eGFR <15 (usually requir ing dialysis)*Markers include: Proteinuria, Hematuria, abnormal imaging-studies, or other blood or urine test abnormalities ID Date Data Source [id number] 07/20/2015 11:42:00 PM EDT [facility] System Name Value Range Interpretation Description Data Sup porting Code Source(s) Document(s ) Lipase 17 U/L 8 - 78 Normal (applies to Lipase, Serum [facility] [Enzymatic U/L non-numeric Health System activity/v results) olume] in Serum or Plasma ID Date Data Source [id number] 01/20/2015 02:58:00 PM EDT [facility] Name Value Range Interpretation Description Data Sup porting Code Source(s) Document(s ) Type O Normal (applies Type [facility] to non-numeric Health System results) D Ab [Titer] Positive Normal (applies Rh [facility] in Serum or to non-numeric Health System Plasma results) Antibody Negative Normal (applies Antibody [facility] Screen to non-numeric Screen Health System results) ID Date Data Source [id number] 01/20/2015 02:58:00 PM EDT [facility] Name Value Range Interpretation Description Data Sup porting Code Source(s) Document(s ) Positive Normal (applies Test [facility] Test Urine, to non-numeric Urine, Health System Visibility results) Visibility Color Color Complete Complete This test can detect HCG urine concentra tion of 25mIU/ml or greater. Negative result at 4 minute reading does not rule out ea rly . If clinically indicated, serum quantitative HCG test should be ordered. ID Date Data Source [id number] 01/20/2015 02:58:00 PM EDT [facility] System Name Value Range Interpretation Description Data Sup porting Code Source(s) Document(s ) C. Not Normal (applies C. [facility] Trachomatis DetectedReference to non-numeric Trachomatis [facility] Amp Range: Not results) Amp System Detected N. Gonorrhea Not Normal (applies N. Gonorrhea [facility] by LCR DetectedReference to non-numeric by LCR Health Range: Not results) System Detected This test was performed using the APTIMA COMBO2(R) Assay (GEN-PROBE(R)). Test Performed at: [facility], [place] [address] M[address] ID Date Data Source [id number] 01/20/2015 02:58:00 PM EDT [facility] System Name Value Range Interpretation Description Data Sup porting Code Source(s) Document(s ) Color YELLOW Yellow Normal (applies Color [facility] to non-numeric Health results) System Appearance of CLEAR Clear Normal (applies Urine [facility] Urine to non-numeric Appearance Health results) System Specific 1.010 Normal (applies Urine Specific [facility] gravity of to non-numeric [facility] Urine results) System pH.. 6.5 4.6 - 8.0 Normal (applies pH.. [facility] {pH_units} pH units to non-numeric Health results) System Glucose, UA NEGATIVE < 50 Normal (applies Glucose, UA [facility] mg/dl to non-numeric Health results) System Protein NEGATIVE < 30 Normal (applies Protein [facility] [Mass/volume] mg/dl to non-numeric Health in Serum or results) System Plasma Bilirubin NEGATIVE Negative Normal (applies Bilirubin [facility] Urine Sm to Lg to non-numeric Urine Health results) System Urobilinogen 0.2 mg/dL Normal (applies Urobilinogen [facility] [Mass/volume] to non-numeric UA Health in Urine results) System Ketones NEGATIVE Negative Normal (applies Ketones UA [facility] [Mass/volume] Tr to Lg to non-numeric Health in Urine results) System Nitrate+Nitrit NEGATIVE Negative Normal (applies Nitrite [facility] Neg/Pos to non-numeric Health [Mass/volume] results) System in Unspecified specimen Leukocyte NEGATIVE Negative Normal (applies Leukocyte [facility] esterase Tr to Lg to non-numeric Esterase Health [Units/volume] results) Concentration System in Urine Leukocytes 0-2 0 - 2 Normal (applies White Blood [facility] [#/volume] in /HPF to non-numeric Cells Health Unspecified results) System specimen by Automated count Red Blood 0-1 0 - 1 Normal (applies Red Blood [facility] Cells /HPF to non-numeric Cells Health results) System Epithelial 0-2 0 - 3 Normal (applies Epithelial [facility] cells /HPF to non-numeric Cells Health [Presence] in results) System Unspecified specimen by Wet preparation Urine Blood NEGATIVE Normal (applies Urine Blood [facility] to non-numeric Health results) System ID Date Data Source [id number] 01/20/2015 02:58:00 PM EDT [facility] Name Value Range Interpretation Description Data Sup porting Code Source(s) Document(s ) Basophil %. 1 % 0 - 1 % Normal (applies Basophil %. [facility] to non-numeric Health results) System Polys 69 % Normal (applies Polys [facility] to non-numeric Health results) System Lymphocyte %. 18 % Normal (applies Lymphocyte %. [facility] to non-numeric [facility] results) System Variant 3 % Normal (applies Atypical [facility] lymphocytes to non-numeric Lymphocyte Health [Presence] in results) Count System Blood by Automated count Platelets Adequate Normal (applies Platelet [facility] [#/volume] in to non-numeric Count Health Blood by results) Estimate System Estimate Monocyte %. 8 % Normal (applies Monocyte %. [facility] to non-numeric Health results) System Eosinophils %. 1 % 1 - 3 % Normal (applies Eosinophils [facility] to non-numeric %. Health results) System NORM Yes Normal (applies NORM [facility] to non-numeric Health results) System ID Date Data Source [id number] 01/20/2015 02:58:00 PM EDT [facility] Name Value Range Interpretation Description Data Sup porting Code Source(s) Document(s ) Leukocytes 5.8 4.8 - Normal (applies WBC Count [facility] [#/volume] in {10^3_uL 10.8 to non-numeric Health Unspecified } 10^3 uL results) System specimen by Automated count Erythrocytes 3.73 3.80 - Below low normal RBC Count [facility] [#/volume] in {10^6_uL 5.20 Health Blood by } 10^6 uL System Automated count Hemoglobin 12.3 12.0 - Normal (applies Hemoglobin [facility] [Mass/volume] in {gm/dL} 16.0 to non-numeric Health Blood gm/dL results) System Hematocrit 35.3 % 36.0 - Below low normal Hematocrit [facility] [Volume 46.0 % Health Fraction] of System Blood Erythrocyte mean 94.6 fl 80.0 - Normal (applies MCV [facility] corpuscular 100.0 to non-numeric Health volume [Entitic fl results) System volume] by Automated count Erythrocyte mean 33.0 pg 26.0 - Normal (applies MCH [facility] corpuscular 34.0 pg to non-numeric Health hemoglobin results) System [Entitic mass] by Automated count Erythrocyte mean 34.8 33.0 - Normal (applies MCHC [facility] corpuscular {gm/dL} 37.0 to non-numeric Health hemoglobin gm/dL results) System concentration [Mass/volume] by Automated count Erythrocyte 12.4 % 11.5 - Normal (applies RDW-CV [facility] distribution 14.5 % to non-numeric Health width [Entitic results) System volume] by Automated count Platelets 285 130 - Normal (applies Platelet [facility] [#/volume] in {10^3_uL 400 to non-numeric Count Health Plasma by } 10^3 uL results) System Automated count Platelet mean 10.3 fl 7.4 - Normal (applies MPV [facility] volume [Entitic 10.4 fl to non-numeric Health volume] in Blood results) System by Automated count Monocytes 0.6 0.3 - Normal (applies Monocyte # [facility] [#/volume] in {10^3_uL 0.9 to non-numeric Health Blood by Manual } 10^3 uL results) System count Eosinophils 0.02 0.05 - Below low normal Eosinophil # [facility] [#/volume] in {10^3_uL 0.30 Health Blood } 10^3 uL System Neutrophils 3.9 2.0 - Normal (applies Neutrophil # [facility] [#/volume] in {10^3_uL 8.1 to non-numeric Health Body fluid } 10^3 uL results) System Basophils 0.01 0.00 - Normal (applies Basophil # [facility] [#/volume] in {10^3_uL 0.10 to non-numeric Health Blood by } 10^3 uL results) System Automated count Lymphocyte # 1.3 1.0 - Normal (applies Lymphocyte # [facility] {10^3_uL 5.5 to non-numeric Health } 10^3 uL results) System Neutrophils/100 67.5 % 0.0 - Normal (applies Neutrophil % Elpidio tabitha leukocytes in 120.0 % to non-numeric Health Blood by results) System Automated count Monocytes/100 9.9 % Normal (applies Monocyte % [facility] leukocytes in to non-numeric Health Blood results) System Eosinophils/100 0.3 % 1.0 - Below low normal Eosinophil % [facility] leukocytes in 3.0 % Health Unspecified System specimen Basophils/100 0.2 % 0.0 - Normal (applies Basophil % [facility] leukocytes in 1.0 % to non-numeric Health Unspecified results) System specimen by Manual count Lymphocytes 22.1 % 21.0 - Normal (applies Lymphocyte % [facility] [#/volume] in 51.0 % to non-numeric Health Blood by results) System Automated count ID Date Data Source [id number] 01/20/2015 02:58:00 PM EDT [facility] System Name Value Range Interpretation Description Data Sup porting Code Source(s) Document(s ) hCG 632214.71 Normal (applies hCG [facility] Quantitative Negative = <5 to non-numeric Quantitative Healt h mIU/mLAPPROXIM results) System ATE GEST. AGE APPROXIMATE HCG mIU/ML 0.2 - 1 week 5 - 50 1 - 2 weeks 50 - 500 2 - 3 weeks 100 - 5,000 3 - 4 weeks 500 - 10,000 4 - 5 weeks 1,000 - 50,000 5 - 6 weeks 10,000 - 100,000 6 - 8 weeks 15,000 - 200,000 8 - 12 weeks 10,000 - 100,000HCG levels between 5-25 mIU/mL may be indicative of early . Correlation with other clinical findings and/or repeat of HCG quantitative testing recommened. ID Date Data Source [id number] 01/20/2015 02:58:00 PM EDT [facility] System Name Value Range Interpretation Description Data Sup porting Code Source(s) Document(s ) Sodium 136 137 - Below low normal Sodium, Serum [facility] [Moles/volume mmol/L 145 Health ] in Serum or mmol/L System Plasma Potassium 3.8 3.6 - Normal (applies Potassium, [facility] [Mass/volume] mmol/L 5.0 to non-numeric Serum Health in Serum or mmol/L results) System Plasma Chloride 104 98 - 107 Normal (applies Chloride, [facility] [Moles/volume mmol/L mmol/L to non-numeric Serum Health ] in Serum or results) System Plasma Carbon 23.0 22.0 - Normal (applies CO2, Serum [facility] dioxide, mmol/L 30.0 to non-numeric Health total mmol/L results) System [Moles/volume ] in Serum or Plasma Glucose 85 mg/dL 65 - 105 Normal (applies Glucose, Serum [facility] [Mass/volume] mg/dL to non-numeric Health in Serum or results) System Plasma Urea nitrogen 8 mg/dl 7 - 18 Normal (applies Blood Urea [facility] [Mass/volume] mg/dl to non-numeric Nitrogen, Health in Serum or results) Serum System Plasma Creatinine 0.60 0.70 - Below low normal Creatinine, [facility] [Mass/volume] mg/dl 1.20 Serum Health in Serum or mg/dl System Plasma Calcium 9.3 8.4 - Normal (applies Calcium, Total [facility] [Mass/volume] mg/dl 10.2 to non-numeric Serum Health in Serum or mg/dl results) System Plasma Anion gap in 9.00 8.00 - Normal (applies Anion Gap [facility] Serum or mmol/L 12.00 to non-numeric Health Plasma mmol/L results) System ID Date Data Source [id number] 01/20/2015 02:58:00 PM EDT [facility] Name Value Range Interpretation Description Data Sup porting Code Source(s) Document(s ) Albumin 4.2 3.9 - Normal (applies Albumin, [facility] [Mass/volume] in {gm/dl} 5.0 to non-numeric Serum Health Serum or Plasma gm/dl results) System Bilirubin.total 0.7 0.2 - Normal (applies Bilirubin, [facility] [Mass/volume] in mg/dl 1.3 to non-numeric Serum Total Health Serum or Plasma mg/dl results) System Aspartate 14 5 - 40 Normal (applies Aspartate [facility] aminotransferase {IU/L} IU/L to non-numeric Transaminase, [facility] [Enzymatic results) Serum System activity/volume] in Serum or Plasma by With P-5'-P Alanine 12 7 - 56 Normal (applies Alanine [facility] aminotransferase {IU/L} IU/L to non-numeric Aminotransfer [facility] [Enzymatic results) ase, Serum System activity/volume] in Serum or Plasma Alkaline 72 38 - Normal (applies Alkaline [facility] phosphatase {IU/L} 126 to non-numeric Phosphatase, Health isoenzymes IU/L results) Serum System [Enzymatic activity/volume] in Serum or Plasma by Heat stability Direct Bilirubin 0.2 0.0 - Normal (applies Direct [facility] mg/dl 0.4 to non-numeric Bilirubin [facility] mg/dl results) System Total Protein 7.6 6.3 - Normal (applies Total Protein [facility] mg/dl 8.2 to non-numeric Health mg/dl results) System ID Date Data Source [id number] 12/30/2014 05:16:00 PM EDT [facility] Name Value Range Interpretation Description Data Sup porting Code Source(s) Document(s ) Sodium 136 137 - Below low normal Sodium, Serum [facility] [Moles/volum mmol/L 145 [facility] e] in Serum mmol/L or Plasma Potassium 3.8 3.6 - Normal (applies Potassium, [facility] [Mass/volume mmol/L 5.0 to non-numeric Serum Health Syste m ] in Serum mmol/L results) or Plasma ok Chloride 107 mmol/L 98 - 107 Normal (applies Chloride, [facility] [Moles/volume] in mmol/L to non-numeric Serum Health System Serum or Plasma results) Carbon dioxide, 22.0 mmol/L 22.0 - 30.0 Normal (applies CO2, Serum [facility] total mmol/L to non-numeric [facility] System [Moles/volume] in results) Serum or Plasma Glucose 83 mg/dL 65 - 105 Normal (applies Glucose, [facility] [Mass/volume] in mg/dL to non-numeric Serum Health S yste Serum or Plasma results) Urea nitrogen 11 mg/dl 7 - 18 Normal (applies Blood Urea [facility] [Mass/volume] in mg/dl to non-numeric Nitrogen, Health S yste Serum or Plasma results) Serum Creatinine 0.70 mg/dl 0.70 - 1.20 Normal (applies Creatinine, [facility] [Mass/volume] in mg/dl to non-numeric Serum Health S yste Serum or Plasma results) Calcium 8.2 mg/dl 8.4 - 10.2 Below low Calcium, [facility] [Mass/volume] in mg/dl normal Total Serum Health Syst em Serum or Plasma Anion gap in Serum 7.00 mmol/L 8.00 - Below low Anion Gap [facility] or Plasma 12.00 normal Health System mmol/L ID Date Data Source [id number] 12/30/2014 02:38:00 PM EDT [facility] System Name Value Range Interpretation Description Data Sup porting Code Source(s) Document(s ) Leukocytes 5.6 4.8 - Normal (applies WBC Count [facility] [#/volume] in {10^3_uL 10.8 to non-numeric Health Unspecified } 10^3 uL results) System specimen by Automated count Erythrocytes 3.85 3.80 - Normal (applies RBC Count [facility] [#/volume] in {10^6_uL 5.20 to non-numeric Health Blood by } 10^6 uL results) System Automated count Hemoglobin 13.0 12.0 - Normal (applies Hemoglobin [facility] [Mass/volume] in {gm/dL} 16.0 to non-numeric Health Blood gm/dL results) System Hematocrit 37.2 % 36.0 - Normal (applies Hematocrit [facility] [Volume 46.0 % to non-numeric Health Fraction] of results) System Blood Erythrocyte mean 96.6 fl 80.0 - Normal (applies MCV [facility] corpuscular 100.0 to non-numeric Health volume [Entitic fl results) System volume] by Automated count Erythrocyte mean 33.8 pg 26.0 - Normal (applies MCH [facility] corpuscular 34.0 pg to non-numeric Health hemoglobin results) System [Entitic mass] by Automated count Erythrocyte mean 34.9 33.0 - Normal (applies MCHC [facility] corpuscular {gm/dL} 37.0 to non-numeric Health hemoglobin gm/dL results) System concentration [Mass/volume] by Automated count Erythrocyte 12.7 % 11.5 - Normal (applies RDW-CV [facility] distribution 14.5 % to non-numeric Health width [Entitic results) System volume] by Automated count Platelets 207 130 - Normal (applies Platelet [facility] [#/volume] in {10^3_uL 400 to non-numeric Count Health Plasma by } 10^3 uL results) System Automated count Platelet mean 10.9 fl 7.4 - Above high MPV [facility] volume [Entitic 10.4 fl normal Health volume] in Blood System by Automated count Monocytes 0.5 0.3 - Normal (applies Monocyte # [facility] [#/volume] in {10^3_uL 0.9 to non-numeric Health Blood by Manual } 10^3 uL results) System count Eosinophils 0.02 0.05 - Below low normal Eosinophil # [facility] [#/volume] in {10^3_uL 0.30 Health Blood } 10^3 uL System Neutrophils 4.6 2.0 - Normal (applies Neutrophil # [facility] [#/volume] in {10^3_uL 8.1 to non-numeric Health Body fluid } 10^3 uL results) System Basophils 0.00 0.00 - Normal (applies Basophil # [facility] [#/volume] in {10^3_uL 0.10 to non-numeric Health Blood by } 10^3 uL results) System Automated count Lymphocyte # 0.5 1.0 - Below low normal Lymphocyte # [facility] {10^3_uL 5.5 Health } 10^3 uL System Neutrophils/100 81.9 % 0.0 - Normal (applies Neutrophil % [facility]pidio tabitha leukocytes in 120.0 % to non-numeric Health Blood by results) System Automated count Monocytes/100 9.1 % Normal (applies Monocyte % [facility] leukocytes in to non-numeric Health Blood results) System Eosinophils/100 0.4 % 1.0 - Below low normal Eosinophil % [facility] leukocytes in 3.0 % Health Unspecified System specimen Basophils/100 0.0 % 0.0 - Normal (applies Basophil % [facility] leukocytes in 1.0 % to non-numeric Health Unspecified results) System specimen by Manual count Lymphocytes 8.6 % 21.0 - Below low normal Lymphocyte % [facility] [#/volume] in 51.0 % Health Blood by System Automated count ID Date Data Source [id number] 12/30/2014 02:38:00 PM EDT [facility] Name Value Range Interpretation Description Data Sup porting Code Source(s) Document(s ) Sodium 134 137 - Below low normal Sodium, Serum [facility] [Moles/volum mmol/L 145 [facility] e] in Serum mmol/L or Plasma Potassium 5.8 3.6 - Above high normal Potassium, [facility] [Mass/volume mmol/L 5.0 Serum Health System ] in Serum mmol/L or Plasma serum hemolyzed called to lynn @ 4:3 9pm Chloride 104 mmol/L 98 - 107 Normal (applies Chloride, [facility] [Moles/volume] in mmol/L to non-numeric Serum Health System Serum or Plasma results) Carbon dioxide, 20.0 mmol/L 22.0 - 30.0 Below low CO2, Serum [facility] total mmol/L normal Health System [Moles/volume] in Serum or Plasma Glucose 83 mg/dL 65 - 105 Normal (applies Glucose, [facility] [Mass/volume] in mg/dL to non-numeric Serum Health [facility] Serum or Plasma results) Urea nitrogen 12 mg/dl 7 - 18 Normal (applies Blood Urea [facility] [Mass/volume] in mg/dl to non-numeric Nitrogen, Health [facility] Serum or Plasma results) Serum Creatinine 0.80 mg/dl 0.70 - 1.20 Normal (applies Creatinine, [facility] [Mass/volume] in mg/dl to non-numeric Serum [facility] Serum or Plasma results) Calcium 8.9 mg/dl 8.4 - 10.2 Normal (applies Calcium, [facility] [Mass/volume] in mg/dl to non-numeric Total Serum [facility] System Serum or Plasma results) Anion gap in Serum 10.00 8.00 - Normal (applies Anion Gap Elpidio tabitha or Plasma mmol/L 12.00 to non-numeric Health System mmol/L results) ID Date Data Source [id number] 12/30/2014 02:38:00 PM EDT [facility] Name Value Range Interpretation Description Data Sup porting Code Source(s) Document(s ) Albumin 4.3 3.9 - Normal (applies Albumin, [facility] [Mass/volume] in {gm/dl} 5.0 to non-numeric Serum Health Serum or Plasma gm/dl results) System Bilirubin.total 1.2 0.2 - Normal (applies Bilirubin, [facility] [Mass/volume] in mg/dl 1.3 to non-numeric Serum Total Health Serum or Plasma mg/dl results) System Aspartate 41 5 - 40 Above high Aspartate [facility] aminotransferase {IU/L} IU/L normal Transaminase, Health [Enzymatic Serum System activity/volume] in Serum or Plasma by With P-5'-P Alanine 16 7 - 56 Normal (applies Alanine [facility] aminotransferase {IU/L} IU/L to non-numeric Aminotransfer Heal th [Enzymatic results) ase, Serum System activity/volume] in Serum or Plasma Alkaline 69 38 - Normal (applies Alkaline [facility] phosphatase {IU/L} 126 to non-numeric Phosphatase, Health isoenzymes IU/L results) Serum System [Enzymatic activity/volume] in Serum or Plasma by Heat stability Direct Bilirubin 0.3 0.0 - Normal (applies Direct [facility] mg/dl 0.4 to non-numeric Bilirubin [facility] mg/dl results) System Total Protein 8.2 6.3 - Normal (applies Total Protein [facility] mg/dl 8.2 to non-numeric Health mg/dl results) System ID Date Data Source [id number] 12/30/2014 02:38:00 PM EDT [facility] System Name Value Range Interpretation Description Data Sup porting Code Source(s) Document(s ) Lipase 16 U/L 8 - 78 Normal (applies to Lipase, Serum [facility] [Enzymatic U/L non-numeric Health System activity/v results) olume] in Serum or Plasma ID Date Data Source [id number] 09/09/2013 12:00:00 AM EDT [facility] Name Value Range Interpretation Description Data Sup porting Code Source(s) Document(s ) Tissue SEE TEXT SURGICAL Normal (applies Tissue Exam [facility] Exam PATHOLOGY to non-numeric Health REPORTCLINICAL results) System INFORMATION: Post dates . S/P .PREOPERATIVE DIAGNOSIS: Same.POSTOPERATIV E DIAGNOSIS:FINAL DIAGNOSIS:Placent a, delivery:Term placenta showing amniotic membrane degeneration with meconium-laden macrophages. Rare neutrophils are noted.Mild acute deciduitis.Focal increase in subchorionic and basalis intervillous and perivillous fibrin deposits, syncytial knots, and calcification.Umb ilical cord shows three vessels - no inflammation is seen.[id number] DESCRIPTION:Recei lillian fresh, labeled "placenta", the specimen consists of a 603.5 gram, 20 x 18 x 3.5 cm, ovoid placenta. The membranes are rebolledo-pink, wrinkled, edematous, and semitranslucent, with a marginal insertion. The point of rupture measures 2 cm from the placental margin. The umbilical cord is rebolledo-white, slightly twisted, and measures 30 x 1.2 cm. Sectioning reveals three vessels. The umbilical cord is centrally inserted, 8 cm from the placental margin. The surface is blue-red, edematous, and glistening. The amnion is completely torn from the surface. The maternal surface grossly appears complete with well-formed cotyledons. Sectioning reveals a pink-red, spongy, focally fibrotic, pale, cut surface, with focal microcalcificatio ns. Senior Program Planner sections are submitted as follows: #1 - membrane roll; #2 - amnion from surface; #3 - umbilical cord; #4 - peripheral section; #5-#6 - central section, bisected.PT/cm@[email or web address] BAILEE HADLEY [email or web address](Signed out 09/10/2013) ID Date Data Source [id number] 09/08/2013 10:00:00 AM EDT [facility] Name Value Range Interpretation Description Data Sup porting Code Source(s) Document(s ) Leukocytes 9.3 4.8 - Normal (applies WBC Count [facility] [#/volume] in {10^3_uL 10.8 to non-numeric Health Unspecified } 10^3 uL results) System specimen by Automated count Erythrocytes 3.28 4.20 - Below low normal RBC Count [facility] [#/volume] in {10^6_uL 5.40 Health Blood by } 10^6 uL System Automated count Hemoglobin 8.4 12.0 - Below low normal Hemoglobin, [facility] [Mass/volume] in {gm/dL} 16.0 Whole Blood Health Blood gm/dL System Hematocrit 25.9 % 37.0 - Below low normal Hematocrit, [facility] [Volume 47.0 % Whole Blood Health Fraction] of System Blood Erythrocyte mean 78.9 fl 81.0 - Below low normal MCV [facility] corpuscular 99.0 fl Health volume [Entitic System volume] by Automated count Erythrocyte mean 25.7 pg 27.0 - Below low normal MCH [facility] corpuscular 31.0 pg Health hemoglobin System [Entitic mass] by Automated count Erythrocyte mean 32.5 33.0 - Below low normal MCHC [facility] corpuscular {gm/dL} 37.0 Health hemoglobin gm/dL System concentration [Mass/volume] by Automated count Erythrocyte 18.5 % 11.5 - Above high RDW [facility] distribution 14.5 % normal Health width [Entitic System volume] by Automated count Platelets 195 130 - Normal (applies Platelet [facility] [#/volume] in {10^3_uL 400 to non-numeric Count Health Plasma by } 10^3 uL results) System Automated count Platelet mean 7.9 fl 7.4 - Normal (applies MPV [facility] volume [Entitic 10.4 fl to non-numeric Health volume] in Blood results) System by Automated count Monocytes 0.8 0.1 - Normal (applies Monocyte [facility] [#/volume] in {10^3_uL 1.0 to non-numeric Count Health Blood by Manual } 10^3 uL results) System count Eosinophils 0.0 0.0 - Normal (applies Eosinophil [facility] [#/volume] in {10^3_uL 0.5 to non-numeric Count Blood Health Blood } 10^3 uL results) System Basophils 0.0 0.0 - Normal (applies Basophil [facility] [#/volume] in {10^3_uL 0.1 to non-numeric Count Health Blood by } 10^3 uL results) System Automated count Neutrophils 7.0 2.6 - Normal (applies Absolute [facility] [#/volume] in {10^3_uL 8.1 to non-numeric Neutrophil Health Body fluid } 10^3 uL results) Count System Lymphocyte 1.5 0.7 - Normal (applies Lymphocyte [facility] Absolute {10^3_uL 4.4 to non-numeric Absolute Health } 10^3 uL results) System Neutrophils/100 75.0 % 55.0 - Normal (applies Neutrophil % Elpidio tabitha leukocytes in 75.0 % to non-numeric Health Blood by results) System Automated count Monocytes/100 8.5 % 2.0 - Normal (applies Monocyte % [facility] leukocytes in 9.0 % to non-numeric Health Blood results) System Eosinophils/100 0.3 % 0.0 - Normal (applies Eosinophil % [facility] tabitha leukocytes in 5.0 % to non-numeric Health Unspecified results) System specimen Basophils/100 0.2 % 0.0 - Normal (applies Basophil % [facility] leukocytes in 1.0 % to non-numeric Health Unspecified results) System specimen by Manual count Lymphocytes 16.0 % 15.0 - Normal (applies Lymphocyte % [facility] [#/volume] in 41.0 % to non-numeric Health Blood by results) System Automated count ID Date Data Source [id number] 09/07/2013 12:38:00 PM EDT [facility] Name Value Range Interpretation Description Data Source(s ) Supporting Code Document(s ) Reagin Ab Non-react Normal (applies to RPR/VDRL. [facility] [Presence] scott non-numeric Health System in Serum by results) RPR ID Date Data Source [id number] 09/07/2013 12:38:00 PM EDT [facility] Name Value Range Interpretation Description Data Sup porting Code Source(s) Document(s ) Type O Normal (applies Type [facility] to non-numeric Health System results) D Ab [Titer] Positive Normal (applies Rh [facility] in Serum or to non-numeric Health System Plasma results) Antibody Negative Normal (applies Antibody [facility] Screen to non-numeric Screen Health System results) ID Date Data Source [id number] 09/07/2013 12:38:00 PM EDT [facility] Name Value Range Interpretation Description Data Sup porting Code Source(s) Document(s ) Color [place] Normal (applies Color [facility] ow to non-numeric Health results) System Appearance of CLEAR Clear Normal (applies Urine [facility] Urine to non-numeric Appearance Health results) System Specific 1.012 Normal (applies Urine Specific [facility] gravity of to non-numeric [facility] Urine results) System pH.. 6.5 4.6 - 8.0 Normal (applies pH.. [facility] {pH_units} pH units to non-numeric Health results) System Glucose, UA NEG Negative Normal (applies Glucose, UA [facility] mg/dl to non-numeric Health results) System Protein NEG 0.0 - Normal (applies Protein [facility] [Mass/volume] 30.0 to non-numeric Health in Serum or mg/dl results) System Plasma Bilirubin NEG Negative Normal (applies Bilirubin [facility] Urine to non-numeric Urine Health results) System Urobilinogen Less than Normal (applies Urobilinogen [facility] [Mass/volume] 2.0 to non-numeric UA Health in Urine Reference results) System Range: Negative or <=2.0 Ketones NEG Negative Normal (applies Ketones UA [facility] [Mass/volume] mg/dl to non-numeric Health in Urine results) System Nitrate+Nitrit Negative Negative Normal (applies Nitrite [facility] e to non-numeric Health [Mass/volume] results) System in Unspecified specimen Leukocyte NEG Negative Normal (applies Leukocyte [facility] esterase to non-numeric Esterase Health [Units/volume] results) Concentration System in Urine Leukocytes 1 {/HPF} 0 - 2 Normal (applies White Blood [facility] [#/volume] in /HPF to non-numeric Cells Health Unspecified results) System specimen by Automated count Red Blood 1 {/HPF} 0 - 1 Normal (applies Red Blood [facility] Cells /HPF to non-numeric Cells Health results) System Epithelial 8 {/HPF} 0 - 3 Normal (applies Epithelial [facility] cells /HPF to non-numeric Cells Health [Presence] in results) System Unspecified specimen by Wet preparation Mucus RARE Normal (applies Mucus [facility] to non-numeric Health results) System Bacteria FEW Normal (applies Bacteria [facility] [Presence] in to non-numeric Health Unspecified results) System specimen Urine Blood (+-)TR Negative Abnormal Urine Blood [facility] (applies to Health non-numeric System results) Non-Squamous Less than Normal (applies Non-Squamous [facility] Epithelial 1 /HPF to non-numeric Epithelial Health results) System Unclassified 2 Normal (applies Unclassified [facility] Casts to non-numeric Casts Health results) System ID Date Data Source [id number] 09/07/2013 12:38:00 PM EDT [facility] Name Value Range Interpretation Description Data Sup porting Code Source(s) Document(s ) aPTT in Blood 25.9 25.1 - Normal (applies Activated [facility] by {Second 36.5 to non-numeric Partial Health Coagulation s} Seconds results) Thromboplastin System assay Time ID Date Data Source [id number] 09/07/2013 12:38:00 PM EDT [facility] Name Value Range Interpretation Description Data Sup porting Code Source(s) Document(s ) Prothrombin 10.40 Normal (applies Prothrombin [facility] time (PT) {seconds to non-numeric time (PT) Health } results) System INR in Blood 0.97 0.70 - Normal (applies INR Result [facility] by Coagulation {Ratio} 1.10 to non-numeric Health assay Ratio results) System Normal = 0.7-1.1Therapeutic = 2.0-3.0Mec hanical Heart = 3.0-4.5 ID Date Data Source [id number] 09/07/2013 12:38:00 PM EDT [facility] Name Value Range Interpretation Description Data Sup porting Code Source(s) Document(s ) Leukocytes 7.3 4.8 - Normal (applies WBC Count [facility] [#/volume] in {10^3_uL 10.8 to non-numeric Health Unspecified } 10^3 uL results) System specimen by Automated count Erythrocytes 3.52 4.20 - Below low normal RBC Count [facility] [#/volume] in {10^6_uL 5.40 Health Blood by } 10^6 uL System Automated count Hemoglobin 9.1 12.0 - Below low normal Hemoglobin, [facility] [Mass/volume] in {gm/dL} 16.0 Whole Blood Health Blood gm/dL System Hematocrit 28.2 % 37.0 - Below low normal Hematocrit, [facility] [Volume 47.0 % Whole Blood Health Fraction] of System Blood Erythrocyte mean 80.2 fl 81.0 - Below low normal MCV [facility] corpuscular 99.0 fl Health volume [Entitic System volume] by Automated count Erythrocyte mean 25.8 pg 27.0 - Below low normal MCH [facility] corpuscular 31.0 pg Health hemoglobin System [Entitic mass] by Automated count Erythrocyte mean 32.1 33.0 - Below low normal MCHC [facility] corpuscular {gm/dL} 37.0 Health hemoglobin gm/dL System concentration [Mass/volume] by Automated count Erythrocyte 17.8 % 11.5 - Above high RDW [facility] distribution 14.5 % normal Health width [Entitic System volume] by Automated count Platelets 191 130 - Normal (applies Platelet [facility] [#/volume] in {10^3_uL 400 to non-numeric Count Health Plasma by } 10^3 uL results) System Automated count Platelet mean 7.8 fl 7.4 - Normal (applies MPV [facility] volume [Entitic 10.4 fl to non-numeric Health volume] in Blood results) System by Automated count Monocytes 0.8 0.1 - Normal (applies Monocyte [facility] [#/volume] in {10^3_uL 1.0 to non-numeric Count Health Blood by Manual } 10^3 uL results) System count Eosinophils 0.0 0.0 - Normal (applies Eosinophil [facility] [#/volume] in {10^3_uL 0.5 to non-numeric Count Blood Health Blood } 10^3 uL results) System Basophils 0.0 0.0 - Normal (applies Basophil [facility] [#/volume] in {10^3_uL 0.1 to non-numeric Count Health Blood by } 10^3 uL results) System Automated count Neutrophils 5.4 2.6 - Normal (applies Absolute [facility] [#/volume] in {10^3_uL 8.1 to non-numeric Neutrophil Health Body fluid } 10^3 uL results) Count System Lymphocyte 1.0 0.7 - Normal (applies Lymphocyte [facility] Absolute {10^3_uL 4.4 to non-numeric Absolute Health } 10^3 uL results) System Neutrophils/100 74.6 % 55.0 - Normal (applies Neutrophil % Elpidio tabitha leukocytes in 75.0 % to non-numeric Health Blood by results) System Automated count Monocytes/100 10.7 % 2.0 - Above high Monocyte % [facility] leukocytes in 9.0 % normal Health Blood System Eosinophils/100 0.3 % 0.0 - Normal (applies Eosinophil % [facility] tabitha leukocytes in 5.0 % to non-numeric Health Unspecified results) System specimen Basophils/100 0.0 % 0.0 - Normal (applies Basophil % [facility] leukocytes in 1.0 % to non-numeric Health Unspecified results) System specimen by Manual count Lymphocytes 14.4 % 15.0 - Below low normal Lymphocyte % [facility] [#/volume] in 41.0 % Health Blood by System Automated count ID Date Data Source [id number] 09/07/2013 12:38:00 PM EDT [facility] Name Value Range Interpretation Description Data Sup porting Code Source(s) Document(s ) Sodium 134 135 - Below low normal Sodium, Serum [facility] [Moles/volume mmol/L 145 Health ] in Serum or mmol/L System Plasma Potassium 4.1 3.5 - Normal (applies Potassium, [facility] [Mass/volume] mmol/L 5.0 to non-numeric Serum Health in Serum or mmol/L results) System Plasma Chloride 104 101 - Normal (applies Chloride, [facility] [Moles/volume mmol/L 111 to non-numeric Serum Health ] in Serum or mmol/L results) System Plasma Carbon 22.5 21.0 - Normal (applies CO2, Serum [facility] dioxide, mmol/L 31.0 to non-numeric Health total mmol/L results) System [Moles/volume ] in Serum or Plasma Glucose 62 mg/dL 65 - 110 Below low normal Glucose, Serum [facility] [Mass/volume] mg/dL Health in Serum or System Plasma Urea nitrogen 4 mg/dl 7 - 18 Below low normal Blood Urea [facility] [Mass/volume] mg/dl Nitrogen, Health in Serum or Serum System Plasma Creatinine 0.36 0.50 - Below low normal Creatinine, [facility] [Mass/volume] mg/dl 1.20 Serum Health in Serum or mg/dl System Plasma Calcium 9.0 8.4 - Normal (applies Calcium, Total [facility] [Mass/volume] mg/dl 10.2 to non-numeric Serum Health in Serum or mg/dl results) System Plasma Anion gap in 7.50 Normal (applies Anion Gap [facility] Serum or mmol/L to non-numeric Health Plasma results) System ID Date Data Source [id number] 01/29/2012 08:00:00 AM EDT [facility] Name Value Range Interpretation Description Data Sup porting Code Source(s) Document(s ) Leukocytes 11.2 4.8 - Above high WBC Count [facility] [#/volume] in {10\\S\\3_ 10.8 normal Health Unspecified uL} 10\\S\\3 System specimen by uL Automated count Erythrocytes 3.40 4.20 - Below low normal RBC Count [facility] [#/volume] in {10\\S\\6_ 5.40 Health Blood by uL} 10\\S\\6 System Automated count uL Hemoglobin 9.9 12.0 - Below low normal Hemoglobin, [facility] [Mass/volume] in {gm/dL} 16.0 Whole Blood Health Blood gm/dL System Hematocrit 30.2 % 37.0 - Below low normal Hematocrit, [facility] [Volume 47.0 % Whole Blood Health Fraction] of System Blood Erythrocyte mean 88.7 fl 81.0 - Normal (applies MCV [facility] corpuscular 99.0 fl to non-numeric Health volume [Entitic results) System volume] by Automated count Erythrocyte mean 29.0 pg 27.0 - Normal (applies MCH [facility] corpuscular 31.0 pg to non-numeric Health hemoglobin results) System [Entitic mass] by Automated count Erythrocyte mean 32.7 33.0 - Below low normal [facility]CHC [facility] corpuscular {gm/dL} 37.0 Health hemoglobin gm/dL System concentration [Mass/volume] by Automated count Erythrocyte 15.7 % 11.5 - Above high RDW [facility] distribution 14.5 % normal Health width [Entitic System volume] by Automated count Platelets 172 130 - Normal (applies Platelet [facility] [#/volume] in {10\\S\\3_ 400 to non-numeric Count Health Plasma by uL} 10\\S\\3 results) System Automated count uL Platelet mean 8.1 fl 7.4 - Normal (applies MPV [facility] volume [Entitic 10.4 fl to non-numeric Health volume] in Blood results) System by Automated count Monocytes 1.3 0.1 - Above high Monocyte [facility] [#/volume] in {10\\S\\3_ 0.6 normal Count Health Blood by Manual uL} 10\\S\\3 System count uL Eosinophils 0.0 0.0 - Normal (applies Eosinophil [facility] [#/volume] in {10\\S\\3} 5.0 to non-numeric Count Blood Health Blood 10\\S\\3 results) System Neutrophils 8.6 3.0 - Above high Absolute [facility] [#/volume] in {10\\S\\3_ 8.1 normal Neutrophil Health Body fluid uL} 10\\S\\3 Count System uL Basophils 0.00 0.00 - Normal (applies Basophil [facility] [#/volume] in {10\\S\\3_ 0.20 to non-numeric Count Health Blood by uL} 10\\S\\3 results) System Automated count uL Lymphocyte 1.3 1.2 - Normal (applies Lymphocyte [facility] Absolute {10\\S\\3_ 3.4 to non-numeric Absolute Health uL} 10\\S\\3 results) System uL Neutrophils/100 76.7 % 55.0 - Above high Neutrophil % [facility] leukocytes in 75.0 % normal Health Blood by System Automated count Monocytes/100 11.6 % 2.0 - Above high Monocyte % [facility] leukocytes in 6.0 % normal Health Blood System Eosinophils/100 0.3 % 1.0 - Below low normal Eosinophil % [facility] leukocytes in 3.0 % Health Unspecified System specimen Basophils/100 0.0 % 0.0 - Normal (applies Basophil % [facility] leukocytes in 1.0 % to non-numeric Health Unspecified results) System specimen by Manual count Lymphocytes 11.4 % 15.0 - Below low normal Lymphocyte % [facility] [#/volume] in 41.0 % Health Blood by System Automated count ID Date Data Source [id number] 01/29/2012 08:00:00 AM ETIENNE [facility] roblero System Name Value Range Interpretation Description Data Sup porting Code Source(s) Document(s ) Sodium 138 mmol/L 135 - Normal (applies Sodium, [facility] [Moles/volume] 145 to non-numeric Serum Health in Serum or mmol/L results) System Plasma Potassium 3.8 mmol/L 3.5 - Normal (applies Potassium, [facility] [Mass/volume] 5.0 to non-numeric Serum Health in Serum or mmol/L results) System Plasma Chloride 108 mmol/L 101 - Normal (applies Chloride, [facility] [Moles/volume] 111 to non-numeric Serum Health in Serum or mmol/L results) System Plasma Carbon dioxide, 22.9 mmol/L 21.0 - Normal (applies CO2, Serum Elpidio tabitha total 31.0 to non-numeric Health [Moles/volume] mmol/L results) System in Serum or Plasma Total Protein 5.7 mg/dl 6.4 - Below low Total [facility] 8.1 normal Protein Health mg/dl System Glucose 79 mg/dL 65 - Normal (applies Glucose, [facility] [Mass/volume] 110 to non-numeric Serum Health in Serum or mg/dL results) System Plasma Urea nitrogen 4 mg/dl 7 - 18 Below low Blood Urea [facility] [Mass/volume] mg/dl normal Nitrogen, Health in Serum or Serum System Plasma Creatinine 0.54 mg/dl 0.50 - Normal (applies Creatinine, [facility] [Mass/volume] 1.20 to non-numeric Serum Health in Serum or mg/dl results) System Plasma Alkaline 204 {IU/L} 42 - Above high Alkaline [facility] phosphatase 121 normal Phosphatase, Health isoenzymes IU/L Serum System [Enzymatic activity/volume ] in Serum or Plasma by Heat stability Bilirubin.total 0.8 mg/dl 0.2 - Normal (applies Bilirubin, [facility] [Mass/volume] 1.2 to non-numeric Serum Total Health in Serum or mg/dl results) System Plasma Aspartate 20 {IU/L} 10 - Normal (applies Aspartate [facility] aminotransferas 42 to non-numeric Transaminase Health e [Enzymatic IU/L results) , Serum System activity/volume ] in Serum or Plasma by With P-5'-P Albumin 2.6 {gm/dl} 3.2 - Below low Albumin, [facility] [Mass/volume] 5.5 normal Serum Health in Serum or gm/dl System Plasma I. Phosphorus 3.8 mg/dl 2.6 - Normal (applies I. [facility] 4.9 to non-numeric Phosphorus Health mg/dl results) System Alanine 9 {IU/L} 10 - Below low Alanine [facility] aminotransferas 42 normal Aminotransfe Health e [Enzymatic IU/L rase, Serum System activity/volume ] in Serum or Plasma Calcium 9.1 mg/dl 8.4 - Normal (applies Calcium, [facility] [Mass/volume] 10.2 to non-numeric Total Serum Health in Serum or mg/dl results) System Plasma A/G Ratio 0.84 Normal (applies A/G Ratio [facility] to non-numeric Health results) System Urate 4.3 mg/dl 2.3 - Normal (applies Uric Acid, [facility] [Mass/volume] 7.5 to non-numeric Serum Health in Serum or mg/dl results) System Plasma Anion gap in 7.10 mmol/L Normal (applies Anion Gap [facility] Serum or Plasma to non-numeric Health results) System Glomerular Greater than Normal (applies GFR [facility] filtration 90 eGFR will to non-numeric Health rate/1.73 sq provide results) System M.predicted clinicians [Volume with a more Rate/Area] in accurate Serum or Plasma indicator of by renal function Creatinine-base then the serum d formula creatinine. (CKD-EPI) The eGFR is automatically calculated from an empiric formula (endorsed by the [employer]) which incorporates age, sex, and race.Clinician s may notice surprisingly low GFR's with serum creatinine valueswithin normal range- particularly in elderly women (with low muscle mass).In the hospital setting, the eGFR should add an element of safety in drug dosing, in assessing the risk of IV contrast administration , and in assessing vascular risk.The NKF staging system is as follows:Normal : eGFR >90 with no kidney markersStage 1: eGFR >90 with kidney markers*Stage 2: eGFR 60-89Stage 3: eGFR 30-59Stage 4: eGFR 15-29Stage 5: eGFR <15 (usually requiring dialysis)*Kian ers include: Proteinuria, Hematuria, abnormal imaging-studie s, or other blood or urine test abnormalities ID Date Data Source [id number] 01/28/2012 04:05:00 PM EDT Raymond Ferguson alth System Name Value Range Interpretation Description Data Sup porting Code Source(s) Document(s ) D Ab Rh Positive Normal (applies Rh Factor, [facility] [Titer] in to non-numeric Whole Blood Health Syste m Serum or results) Plasma Type O Normal (applies Type [facility] to non-numeric Health System results) New patient -- no history. Antibody Screen Negative Normal (applies to Antibody Screen [facility] Health non-numeric results) System ID Date Data Source [id number] 01/28/2012 04:05:00 PM EDT Raymond Ferguson alth System Name Value Range Interpretation Description Data Source(s ) Supporting Code Document(s ) Reagin Ab Non-react Normal (applies to RPR/VDRL. [facility] [Presence] scott non-numeric Health System in Serum by results) RPR ID Date Data Source [id number] 01/28/2012 04:05:00 PM EDT Raymond Ferguson alth System Name Value Range Interpretation Description Data Sup porting Code Source(s) Document(s ) Glucose, UA NEG Negative Normal (applies Glucose, UA [facility] mg/dl to non-numeric Health results) System Protein NEG 0.0 - Normal (applies Protein [facility] [Mass/volume] 30.0 to non-numeric Health in Serum or mg/dl results) System Plasma Bilirubin NEG Negative Normal (applies Bilirubin [facility] Urine to non-numeric Urine Health results) System Urobilinogen Less than Normal (applies Urobilinogen [facility] [Mass/volume] 2.0 to non-numeric UA Health in Urine Reference results) System Range: Negative or <=2.0 pH.. 6.5 4.6 - 8.0 Normal (applies pH.. [facility] {pH_units} pH units to non-numeric Health results) System Ketones NEG Negative Normal (applies Ketones UA [facility] [Mass/volume] mg/dl to non-numeric Health in Urine results) System Nitrate+Nitrit Negative Negative Normal (applies Nitrite [facility] e to non-numeric Health [Mass/volume] results) System in Unspecified specimen Appearance of CLEAR Clear Normal (applies Urine [facility] Urine to non-numeric Appearance Health results) System Leukocyte NEG Negative Normal (applies Leukocyte [facility] esterase to non-numeric Esterase Health [Units/volume] results) Concentration System in Urine Specific 1.005 Normal (applies Urine Specific [facility] gravity of to non-numeric [facility] Urine results) System Color [place] Normal (applies Color [facility] ow to non-numeric Health results) System Urine Blood NEG Negative Normal (applies Urine Blood [facility] to non-numeric Health results) System ID Date Data Source [id number] 01/28/2012 04:05:00 PM EDT [facility] System Name Value Range Interpretation Description Data Sup porting Code Source(s) Document(s ) aPTT in Blood 26.0 25.1 - Normal (applies Activated [facility] by {Second 36.5 to non-numeric Partial Health Coagulation s} Seconds results) Thromboplastin System assay Time ID Date Data Source [id number] 01/28/2012 04:05:00 PM EDT [facility] System Name Value Range Interpretation Description Data Sup porting Code Source(s) Document(s ) Prothrombin 10.30 Normal (applies Prothrombin [facility] time (PT) to non-numeric time (PT) Health results) System Prothrombin Ab 0.95 0.70 - Normal (applies INR Result [facility] [Units/volume] {Ratio} 1.10 to non-numeric Health in Serum or Ratio results) System Plasma Normal = 0.7-1.1Therapeutic = 2.0-3.0Mec hanical Heart = 3.0-4.5 ID Date Data Source [id number] 01/28/2012 04:05:00 PM EDT [facility] System Name Value Range Interpretation Description Data Sup porting Code Source(s) Document(s ) Leukocytes 6.9 4.8 - Normal (applies WBC Count [facility] [#/volume] in {10\\S\\3_ 10.8 to non-numeric Health Unspecified uL} 10\\S\\3 results) System specimen by uL Automated count Erythrocytes 3.55 4.20 - Below low normal RBC Count [facility] [#/volume] in {10\\S\\6_ 5.40 Health Blood by uL} 10\\S\\6 System Automated count uL Hemoglobin 10.2 12.0 - Below low normal Hemoglobin, [facility] [Mass/volume] in {gm/dL} 16.0 Whole Blood Health Blood gm/dL System Hematocrit 31.4 % 37.0 - Below low normal Hematocrit, [facility] [Volume 47.0 % Whole Blood Health Fraction] of System Blood Erythrocyte mean 88.4 fl 81.0 - Normal (applies MCV [facility] corpuscular 99.0 fl to non-numeric Health volume [Entitic results) System volume] by Automated count Erythrocyte mean 28.8 pg 27.0 - Normal (applies MCH [facility] corpuscular 31.0 pg to non-numeric Health hemoglobin results) System [Entitic mass] by Automated count Erythrocyte mean 32.6 33.0 - Below low normal [facility]CH[facility] [place] corpuscular {gm/dL} 37.0 Health hemoglobin gm/dL System concentration [Mass/volume] by Automated count Erythrocyte 15.3 % 11.5 - Above high RDW [facility] distribution 14.5 % normal Health width [Entitic System volume] by Automated count Platelets 200 130 - Normal (applies Platelet [facility] [#/volume] in {10\\S\\3_ 400 to non-numeric Count Health Plasma by uL} 10\\S\\3 results) System Automated count uL Platelet mean 9.0 fl 7.4 - Normal (applies MPV [facility] volume [Entitic 10.4 fl to non-numeric Health volume] in Blood results) System by Automated count Monocytes 0.7 0.1 - Above high Monocyte [facility] [#/volume] in {10\\S\\3_ 0.6 normal Count Health Blood by Manual uL} 10\\S\\3 System count uL Eosinophils 0.0 0.0 - Normal (applies Eosinophil [facility] [#/volume] in {10\\S\\3} 5.0 to non-numeric Count Blood Health Blood 10\\S\\3 results) System Neutrophils 5.1 3.0 - Normal (applies Absolute [facility] [#/volume] in {10\\S\\3_ 8.1 to non-numeric Neutrophil Health Body fluid uL} 10\\S\\3 results) Count System uL Basophils 0.00 0.00 - Normal (applies Basophil [facility] [#/volume] in {10\\S\\3_ 0.20 to non-numeric Count Health Blood by uL} 10\\S\\3 results) System Automated count uL Lymphocyte 1.0 1.2 - Below low normal Lymphocyte [facility] Absolute {10\\S\\3_ 3.4 Absolute Health uL} 10\\S\\3 System uL Neutrophils/100 74.4 % 55.0 - Normal (applies Neutrophil % Elpidio tabitha leukocytes in 75.0 % to non-numeric Health Blood by results) System Automated count Monocytes/100 10.5 % 2.0 - Above high Monocyte % [facility] leukocytes in 6.0 % normal Health Blood System Eosinophils/100 0.1 % 1.0 - Below low normal Eosinophil % [facility] leukocytes in 3.0 % Health Unspecified System specimen Basophils/100 0.3 % 0.0 - Normal (applies Basophil % [facility] leukocytes in 1.0 % to non-numeric Health Unspecified results) System specimen by Manual count Lymphocytes 14.7 % 15.0 - Below low normal Lymphocyte % [facility] [#/volume] in 41.0 % Health Blood by System Automated count ID Date Data Source [id number] 01/28/2012 04:05:00 PM EDT [facility] System Name Value Range Interpretation Description Data Sup porting Code Source(s) Document(s ) Sodium 135 135 - Normal (applies Sodium, Serum [facility] [Moles/volume mmol/L 145 to non-numeric Health ] in Serum or mmol/L results) System Plasma Potassium 3.9 3.5 - Normal (applies Potassium, [facility] [Mass/volume] mmol/L 5.0 to non-numeric Serum Health in Serum or mmol/L results) System Plasma Chloride 105 101 - Normal (applies Chloride, [facility] [Moles/volume mmol/L 111 to non-numeric Serum Health ] in Serum or mmol/L results) System Plasma Carbon 21.3 21.0 - Normal (applies CO2, Serum [facility] dioxide, mmol/L 31.0 to non-numeric Health total mmol/L results) System [Moles/volume ] in Serum or Plasma Glucose 68 mg/dL 65 - 110 Normal (applies Glucose, Serum [facility] [Mass/volume] mg/dL to non-numeric Health in Serum or results) System Plasma Urea nitrogen 3 mg/dl 7 - 18 Below low normal Blood Urea [facility] [Mass/volume] mg/dl Nitrogen, Health in Serum or Serum System Plasma Creatinine 0.36 0.50 - Below low normal Creatinine, [facility] [Mass/volume] mg/dl 1.20 Serum Health in Serum or mg/dl System Plasma Calcium 9.2 8.4 - Normal (applies Calcium, Total [facility] [Mass/volume] mg/dl 10.2 to non-numeric Serum Health in Serum or mg/dl results) System Plasma Anion gap in 8.70 Normal (applies Anion Gap [facility] Serum or mmol/L to non-numeric Health Plasma results) System ID Date Data Source [id number] 01/13/2012 06:00:00 AM EDT [facility] System Name Value Range Interpretation Description Data Sup porting Code Source(s) Document(s ) C. DetectedReference Abnormal C. [facility] Trachomatis Range: Not (applies to Trachomatis Health Amp Detected non-numeric Amp System A positive CT or results) NG Nucleic Acid Amplification Test (NAAT) result should be considered presumptive evidence of infection. The result should be evaluated along with physical examination and other diagnostic findings. However, in cases of an unexpected positive result, testing a second specimen using an alternative NAAT method may be beneficial. Tests using either Strand Displacement Amplification or Pin Or Clip Fastener Mediated Amplification are available if warranted (test codes 59619M and 93870Y respectively). N. Gonorrhea Not Normal (applies N. Gonorrhea [facility] by LCR DetectedReference to non-numeric by LCR Health Range: Not results) System Detected This test was performed using the BD ProbeTec(TM) Chlamydia trachomatis and Neisseria gonorrhoeae Amplified DNA Assays. Test Performed at: [facility], [place] [address] Maddie Red M.D. ID Date Data Source [id number] 01/13/2012 06:00:00 AM EDT [facility] System Name Value Range Interpretation Description Data Sup porting Code Source(s) Document(s ) Bacteria Micro Result Final Normal (applies Cult Female [facility] identified Culture Reading to non-numeric Genital Health in Genital Note::NEGATIVE FOR results) System specimen by NEISSERIA Aerobe GONORRHEAOAENEGATI culture VE FOR YEASTLIKE ORGANISMSNEGATIVE FOR GROUP B BETA HEMOLYTIC STREPTOCOCCI ID Date Data Source [id number] 01/12/2012 11:45:00 AM EDT [facility] System Name Value Range Interpretation Description Data Source(s ) Supporting Code Document(s ) Reagin Ab Non-react Normal (applies to RPR/VDRL. [facility] [Presence] scott non-numeric Health System in Serum by results) RPR ID Date Data Source [id number] 01/12/2012 11:45:00 AM EDT [facility] System Name Value Range Interpretation Description Data Sup porting Code Source(s) Document(s ) Leukocytes 5.9 4.8 - Normal (applies WBC Count [facility] [#/volume] in {10\\S\\3_ 10.8 to non-numeric Health Unspecified uL} 10\\S\\3 results) System specimen by uL Automated count Erythrocytes 3.15 3.80 - Below low normal RBC Count [facility] [#/volume] in {10\\S\\6_ 5.20 Health Blood by uL} 10\\S\\6 System Automated count uL Hemoglobin 8.8 12.0 - Below low normal Hemoglobin, [facility] [Mass/volume] in {gm/dL} 16.0 Whole Blood Health Blood gm/dL System Hematocrit 28.7 % 36.0 - Below low normal Hematocrit, [facility] [Volume 46.0 % Whole Blood Health Fraction] of System Blood Erythrocyte mean 91.1 fl 80.0 - Normal (applies MCV [facility] corpuscular 100.0 to non-numeric Health volume [Entitic fl results) System volume] by Automated count Erythrocyte mean 27.9 pg 26.0 - Normal (applies MCH [facility] [facility] corpuscular 34.0 pg to non-numeric Health hemoglobin results) System [Entitic mass] by Automated count Erythrocyte mean 30.7 33.0 - Below low normal MCHC [facility] corpuscular {gm/dL} 37.0 Health hemoglobin gm/dL System concentration [Mass/volume] by Automated count Erythrocyte 14.7 % 11.5 - Above high RDW [facility] distribution 14.5 % normal Health width [Entitic System volume] by Automated count Platelets 167 130 - Normal (applies Platelet [facility] [#/volume] in {10\\S\\3_ 400 to non-numeric Count Health Plasma by uL} 10\\S\\3 results) System Automated count uL Platelet mean 10.6 fl 7.4 - Above high MPV [facility] volume [Entitic 10.4 fl normal Health volume] in Blood System by Automated count Monocytes 0.6 Normal (applies Monocyte [facility] [#/volume] in {10\\S\\3_ to non-numeric Count Health Blood by Manual uL} results) System count Eosinophils 0.0 Normal (applies Eosinophil [facility] [#/volume] in {10\\S\\3} to non-numeric Count Blood Health Blood results) System Neutrophils 4.1 Normal (applies Absolute [facility] [#/volume] in {10\\S\\3_ to non-numeric Neutrophil Health Body fluid uL} results) Count System Basophils 0.01 Normal (applies Basophil [facility] [#/volume] in {10\\S\\3_ to non-numeric Count Health Blood by uL} results) System Automated count Lymphocyte 1.2 Normal (applies Lymphocyte [facility] Absolute {10\\S\\3_ to non-numeric Absolute Health uL} results) System Monocytes/100 9.4 % 6.0 - Above high Monocyte % [facility] leukocytes in 9.0 % normal Health Blood System Neutrophils/100 69.7 % Normal (applies Neutrophil % Elpidio tabitha leukocytes in to non-numeric Health Blood by results) System Automated count Eosinophils/100 0.3 % 1.0 - Below low normal Eosinophil % [facility] leukocytes in 3.0 % Health Unspecified System specimen Basophils/100 0.2 % 0.0 - Normal (applies Basophil % [facility] leukocytes in 1.0 % to non-numeric Health Unspecified results) System specimen by Manual count Lymphocytes 20.4 % 21.0 - Below low normal Lymphocyte % [facility] [#/volume] in 51.0 % Health Blood by System Automated count ID Date Data Source [id number] 01/12/2012 11:45:00 AM EDT [facility] System Name Value Range Interpretation Code Description Data Evi rce(s) Supporting Document(s ) HbA1C 4.7 % 4.6 - 6.2 % Normal (applies to HbA1C [facility] non-numeric Health System results) ID Date Data Source [id number] 01/12/2012 11:45:00 AM EDT [facility] System Name Value Range Interpretation Description Data Sup porting Code Source(s) Document(s ) Glucose 105 Normal (applies Glucose [facility] [Mass/volume mg/dL to non-numeric Tolerance, Health Syst em ] in Serum results) Serum 30 or Plasma Minutes --30 minutes post XXX challenge Glucose 71 mg/dL 65 - 94 Normal (applies Glucose [facility] Tolerance, mg/dL to non-numeric Tolerance, Health System Serum results) Serum Fasting Fasting Glucose 123 Normal (applies Glucose [facility] [Mass/volume mg/dL to non-numeric Tolerance, Health Syst em ] in Serum results) Serum 1 Hour or Plasma --1 hour post XXX challenge ID Date Data Source [id number] 09/12/2011 03:00:00 PM EDT [facility] System Name Value Range Interpretation Description Data Sup porting Code Source(s) Document(s ) Bacteria Micro Result Final Normal (applies Cult Female [facility] identified Culture Reading to non-numeric Genital Health in Genital Note::NEGATIVE FOR results) System specimen by NEISSERIA Aerobe GONORRHEAOAENEGATI culture VE FOR YEASTLIKE ORGANISMSNEGATIVE FOR GROUP B BETA HEMOLYTIC STREPTOCOCCI ID Date Data Source [id number] 09/12/2011 12:36:00 PM EDT [facility] Marty [facility] System Name Value Range Interpretation Description Data Sup porting Code Source(s) Document(s ) Anti-IgG Negative Normal (applies Anti-IgG [facility] to non-numeric Health results) System Direct Cancelled Direct [facility] Antiglobulin n/a Antiglobulin Health Test. Test. System ID Date Data Source [id number] 09/12/2011 12:36:00 PM EDT Mont[facility] Ferguson alth System Name Value Range Interpretation Description Data Sup porting Code Source(s) Document(s ) D Ab Rh Positive Normal (applies Rh Factor, [facility] [Titer] in to non-numeric Whole Blood Health Syste m Serum or results) Plasma Type O Normal (applies Type [facility] to non-numeric Health System results) Antibody Negative Normal (applies Antibody [facility] Screen to non-numeric Screen Health System results) ID Date Data Source [id number] 09/12/2011 12:36:00 PM EDT [facility] System Name Value Range Interpretation Description Data Source(s ) Supporting Code Document(s ) hemoglob 9.9 g/dL 11.7 - Below low normal hemoglobin. [facility] in. 15.5 g/dL Health System RBC. 2.85 3.80 - Below low normal RBC. [facility] {Mill/mcL 5.10 Health System } Mill/mcL Hematocr 29.4 % 35.0 - Below low normal Hematocrit. [facility] it. 45.0 % Health System MCV. 103.1 fL 80.0 - Above high normal MCV. [facility] 100.0 fL Health System RDW. 13.9 % 11.0 - Normal (applies to RDW. [facility] 15.0 % non-numeric Health System results) Test Performed at: [facility] , [place] [address] Maddie Red M.D. MCH. 34.8 pg 27.0 - Above MCH. [facility] 33.0 pg high Health System normal Hemoglobin A 96.1 {Percent} >96.0 Normal Hemoglobin A [facility] Percent (applies Health System to non-numer ic results) Hemoglobin SEE NOTE Normal Hemoglobin [facility] Electrophoresis No (applies Electrophoresis Health S ystem Interpretation Hemoglobin to Interpretation variant non-numer detected. ic results) Hemoglobin F Less than 1.0 <2.0 Normal Hemoglobin, Elpidio tabitha [Mass/volume] in Percent (applies Health System Blood by to Electrophoresis non-numer ic results) Hemoglobin A2 2.9 {Percent} 1.8 - 3.5 Normal Hemoglobin A2 [facility] Percent (applies Health System to non-numer ic results) Hemoglobin C 0.0 {Percent} 0.0 - 0.0 Normal Hemoglobin C [facility] Percent (applies Health System to non-numer ic results) Hemoglobin S 0.0 {Percent} 0.0 - 0.0 Normal Hemoglobin S [facility] Percent (applies Health System to non-numer ic results) Hem. Variant 0.0 {Percent} 0.0 - 0.0 Normal Hem. Variant [facility] Percent (applies Health System to non-numer ic results) Test Performed at: [facility] , [place] [address] Maddie Red M.D. ID Date Data Source [id number] 09/12/2011 12:36:00 PM EDT [facility] System Name Value Range Interpretation Description Data Sup porting Code Source(s) Document(s ) Varicella Result 0.85 Normal (applies Varicella [facility] Value to non-numeric Result Value Health results) System Varicella Equivocal Normal (applies Varicella [facility] Interpretation <0.6 to non-numeric Interpretation Healt h Negative> results) System =0.6 - <.90 Equivocal> =.90 Positive ID Date Data Source [id number] 09/12/2011 12:36:00 PM EDT [facility] System Name Value Range Interpretation Description Data Sup porting Code Source(s) Document(s ) Rubella 6 {IU/mL} Normal (applies Rubella [facility] to non-numeric Health results) System Rubella equivocal Normal (applies [facility] Interpretation <5 to non-numeric Interpretation Healt h Negative>= results) System 5 - <10 Equivocal> = 10 Positive ID Date Data Source [id number] 09/12/2011 12:36:00 PM EDT [facility] Name Value Range Interpretation Description Data Sup porting Code Source(s) Document(s ) Rubeola AB IgG Positive Normal (applies Rubeola AB IgG [facility] interpretation to non-numeric interpretation Healt h results) System <.50 Negative>=.50 - <.70 Equivo adeline>=.70 Positive Rubeola AB IgG 0.70 Normal (applies to Rubeola AB IgG [facility] Result Value non-numeric results) Result Value Sys tem ID Date Data Source [id number] 09/12/2011 12:36:00 PM EDT [facility] Name Value Range Interpretation Description Data Sup porting Code Source(s) Document(s ) Leukocytes 6.3 4.8 - Normal (applies WBC Count [facility] [#/volume] in {10\\S\\3_ 10.8 to non-numeric Health Unspecified uL} 10\\S\\3 results) System specimen by uL Automated count Erythrocytes 3.08 3.80 - Below low normal RBC Count [facility] [#/volume] in {10\\S\\6_ 5.20 Health Blood by uL} 10\\S\\6 System Automated count uL Hemoglobin 10.4 12.0 - Below low normal Hemoglobin, [facility] [Mass/volume] in {gm/dL} 16.0 Whole Blood Health Blood gm/dL System Hematocrit 30.7 % 36.0 - Below low normal Hematocrit, [facility] [Volume 46.0 % Whole Blood Health Fraction] of System Blood Erythrocyte mean 99.7 fl 80.0 - Normal (applies MCV [facility] corpuscular 100.0 to non-numeric Health volume [Entitic fl results) System volume] by Automated count Erythrocyte mean 33.8 pg 26.0 - Normal (applies MCH [facility] corpuscular 34.0 pg to non-numeric Health hemoglobin results) System [Entitic mass] by Automated count Erythrocyte mean 33.9 33.0 - Normal (applies MCHC [facility] corpuscular {gm/dL} 37.0 to non-numeric Health hemoglobin gm/dL results) System concentration [Mass/volume] by Automated count Erythrocyte 13.7 % 11.5 - Normal (applies RDW [facility] distribution 14.5 % to non-numeric Health width [Entitic results) System volume] by Automated count Platelets 209 130 - Normal (applies Platelet [facility] [#/volume] in {10\\S\\3_ 400 to non-numeric Count Health Plasma by uL} 10\\S\\3 results) System Automated count uL Platelet mean 11.0 fl 7.4 - Above high MPV [facility] volume [Entitic 10.4 fl normal Health volume] in Blood System by Automated count Eosinophils 0.0 Normal (applies Eosinophil [facility] [#/volume] in {10\\S\\3} to non-numeric Count Blood Health Blood results) System Monocytes 0.5 Normal (applies Monocyte [facility] [#/volume] in {10\\S\\3_ to non-numeric Count Health Blood by Manual uL} results) System count Neutrophils 4.8 Normal (applies Absolute [facility] [#/volume] in {10\\S\\3_ to non-numeric Neutrophil Health Body fluid uL} results) Count System Lymphocyte 1.0 Normal (applies Lymphocyte [facility] Absolute {10\\S\\3_ to non-numeric Absolute Health uL} results) System Basophils 0.01 Normal (applies Basophil [facility] [#/volume] in {10\\S\\3_ to non-numeric Count Health Blood by uL} results) System Automated count Neutrophils/100 76.4 % Normal (applies Neutrophil % Elpidio tabitha leukocytes in to non-numeric Health Blood by results) System Automated count Monocytes/100 7.8 % 6.0 - Normal (applies Monocyte % [facility] leukocytes in 9.0 % to non-numeric Health Blood results) System Eosinophils/100 0.3 % 1.0 - Below low normal Eosinophil % [facility] leukocytes in 3.0 % Health Unspecified System specimen Basophils/100 0.2 % 0.0 - Normal (applies Basophil % [facility] leukocytes in 1.0 % to non-numeric Health Unspecified results) System specimen by Manual count Lymphocytes 15.3 % 21.0 - Below low normal Lymphocyte % [facility] [#/volume] in 51.0 % Health Blood by System Automated count ID Date Data Source [id number] 09/12/2011 12:36:00 PM EDT [facility] Name Value Range Interpretation Description Data Sup porting Code Source(s) Document(s ) Hepatitis B DNR Test Performed Normal (applies Hepatitis B [facility] at: [facility] to non-numeric [facility], One results) [place] [address] Maddie Red M.D. Hepatitis B Non Normal (applies Hepatitis B [facility] Surface ReactiveReference to non-numeric Surface [facility] Antigen. Range: Non results) Antigen. System Reactive ID Date Data Source [id number] 09/12/2011 12:36:00 PM EDT [facility] Name Value Range Interpretation Description Data Sup porting Code Source(s) Document(s ) Sodium 138 137 - Normal (applies Sodium, Serum [facility] [Moles/volume mmol/L 145 to non-numeric Health ] in Serum or mmol/L results) System Plasma Potassium 4.0 3.6 - Normal (applies Potassium, [facility] [Mass/volume] mmol/L 5.0 to non-numeric Serum Health in Serum or mmol/L results) System Plasma Chloride 107 98 - 107 Normal (applies Chloride, [facility] [Moles/volume mmol/L mmol/L to non-numeric Serum Health ] in Serum or results) System Plasma Carbon 21.0 22.0 - Below low normal CO2, Serum [facility] dioxide, mmol/L 30.0 Health total mmol/L System [Moles/volume ] in Serum or Plasma Glucose 83 mg/dL 65 - 105 Normal (applies Glucose, Serum [facility] [Mass/volume] mg/dL to non-numeric Health in Serum or results) System Plasma Urea nitrogen 7 mg/dl 7 - 18 Normal (applies Blood Urea [facility] [Mass/volume] mg/dl to non-numeric Nitrogen, Health in Serum or results) Serum System Plasma Creatinine 0.50 0.70 - Below low normal Creatinine, [facility] [Mass/volume] mg/dl 1.20 Serum Health in Serum or mg/dl System Plasma Calcium 8.4 8.4 - Normal (applies Calcium, Total [facility] [Mass/volume] mg/dl 10.2 to non-numeric Serum Health in Serum or mg/dl results) System Plasma Anion gap in 10.00 8.00 - Normal (applies Anion Gap [facility] Serum or mmol/L 12.00 to non-numeric Health Plasma mmol/L results) System ID Date Data Source [id number] 09/12/2011 12:30:00 PM EDT [facility] Name Value Range Interpretation Description Data Sup porting Code Source(s) Document(s ) Method. see noteThe Normal (applies Method. [facility] mutations to non-numeric Health listed above results) System are detected by anoligonucleo tide ligation assay (DAVID) after multiplex-kali ymerase chain reaction (PCR) amplification ofspecific CF gene regions. Fluorescent allele-specif icreaction products are detected by capillaryelec trophoresis. Since genetic variation and otherfactors can affect the accuracy of direct mutationtesti ng, the results of this testing should always beinterpreted in light of clinical and familial data. Ethinicity N/P Normal (applies Ethinicity [facility] to non-numeric Health results) System CF Carrier see Normal (applies CF Carrier [facility] Screen noteNEGATIVE; to non-numeric Screen Health NONE OF THE results) System MUTATIONS LISTEDBELOW WERE DETECTED Mutations/Kali SEE TEXT see Normal (applies Mutations/Polym [facility] ymorphisms note*MUTATION to non-numeric orphisms Health S/POLYMORPHIS results) System MS ANALYZED:G85E Delta F508 [id number] lTT V520F 2789+5 G>IM489K 1717-1 G>A 3120+1 G>A621+1 G>T G542X Y6038O930+1 G>T S549N [id number] elT S549R 3849+10kb C>ZO509X G551D [id number] R553X 1535pryCS103C R560T [id number] 1898+1 G>A A0359GCiilz I507 2183AA>GThis assay detects thirty-two mutations, including thetwenty-thr ee core mutations recommended by the AmericanColle of Medical Genetics (ACMG) and the AmericanNvlle of Obstetricians and Gynecologists (ACOG) forpopulation -based CF carrier screening. Testing for theintron 8 5T polymorphism is performed only when [id number] mutation is detected. Testing for the I506V [id number] polymorphisms is performed only when a homozygousDel ta F508 or Delta I507 mutation is detected.In addition to the ACMG/ACOG panel, this assay detectsnine additional mutations. While these mutations arerare in the [place] population, the scientific and medicallitera ture indicates that these mutations are notbenign polymorphisms . Interpretatio see noteThis Normal (applies Interpretation [facility] n result does to non-numeric Health not rule out results) System the presence of amutation or a diagnosis of cystic fibrosis disease(CF).* The risk for mutations that cause CF otherthan the ones tested depends greatly on familyhistory , clinical presentation, and ethnicity. Chance of Having a CF MutationEthni c Group Detection Before After Negative Rate Test ResultAshken cliff Mosque 94% 1 in 24 1 in 400Non-Hispan ic 88% 1 in 25 1 in 208CaucasianH ispanic-Ameri can 72% 1 in 46 1 in 164African-Am erican 65% 1 in 65 1 in 186Asian-Amer ican 49% 1 in 94 1 in 184Other insufficient data availableFor assistance with interpretatio n of theseresults, please contact your local [facility] genetic counselor or [id number] LUCIANORanda ([phone] ). Reviewer see Normal (applies Reviewer Raymond English to non-numeric Health ,Ph.D.,FACMGD results) System irector, Molecular GeneticsThe performance characteristi cs of this assay have beendetermine d by [facility] [facility].Per formance characteristi cs refer to the analyticalper formance of the test. This test was performed at: [facility] [address] Test Performed at: [facility] - [employer] [facility], [address] [place] [address] Romero Jacobs MD,PhD ID Date Data Source [id number] 09/12/2011 12:30:00 PM EDT [facility] Name Value Range Interpretation Description Data Sup porting Code Source(s) Document(s ) Herpes See report Normal (applies Herpes Simples [facility] Simples to non-numeric Virus I IgG Health System Virus I IgG results) Titer Titer Herpes See report Normal (applies Herpes Simplex [facility] Simplex to non-numeric Virus II IgG Health Syste m Virus II results) Titer IgG Titer ID Date Data Source [id number] 09/12/2011 12:30:00 PM EDT [facility] Name Value Range Interpretation Description Data Source(s ) Supporting Code Document(s ) Lead.. Less than <10 Normal (applies to Lead.. [facility] 3 mcg/dL non-numeric Health System results) ID Date Data Source [id number] 09/12/2011 12:30:00 PM EDT [facility] Name Value Range Interpretation Description Data Sup porting Code Source(s) Document(s ) Alpha See report Normal (applies to Alpha [facility] Fetoprotei non-numeric Fetoprotein, Health System n, Tumor results) Tumor Marker Marker ID Date Data Source [id number] 09/12/2011 12:30:00 PM EDT [facility] Name Value Range Interpretation Description Data Sup porting Code Source(s) Document(s ) Alpha See Normal (applies Alpha [facility] Fetoprotein report to non-numeric Fetoprotein Health Interpretation results) Interpretation System ID Date Data Source [id number] 09/12/2011 12:30:00 PM EDT [facility] Name Value Range Interpretation Description Data Source(s ) Supporting Code Document(s ) Reagin Ab Non-react Normal (applies to RPR/VDRL. [facility] [Presence] scott non-numeric Health System in Serum by results) RPR ID Date Data Source [id number] 09/12/2011 11:21:00 AM EDT [facility] Name Value Range Interpretation Description Data Sup porting Code Source(s) Document(s ) N. DNR Test Normal (applies N. [facility] Gonorrhoeae Performed at: [facility] to non-numeric Gonorrhoeae [facility] results) [facility], [place] [address] Maddie Red M.D. Chlamydia, Not Normal (applies Chlamydia, [facility] DNA Probe DetectedReference to non-numeric DNA Probe Health Range: Not results) System Detected C. DNR Normal (applies C. [facility] Trachomatis to non-numeric Trachomatis Health DNA Probe results) DNA Probe System ID Date Data Source [id number] 09/12/2011 11:00:00 AM EDT [facility] Name Value Range Interpretation Description Data Sup porting Code Source(s) Document(s ) Deprecated Micro Normal (applies Aerobic [facility] Bacteria Result to non-numeric Culture, Health identified in Final results) Urine System Urine by Culture Aerobe Reading culture Note::< 10,000 CFU/ML GRAM POSITIVE COCCI ID Date Data Source [id number] 09/12/2011 11:00:00 AM EDT [facility] Name Value Range Interpretation Description Data Sup porting Code Source(s) Document(s ) Color YELLOW YELLOW Normal (applies Color [facility] to non-numeric Health results) System Appearance of CLEAR CLEAR Normal (applies Urine [facility] Urine to non-numeric Appearance Health results) System Specific 1.025 Normal (applies Urine [facility] gravity of to non-numeric Specific Health Urine results) [place] System pH.. 6.5 4.6 - Normal (applies pH.. [facility] {pH_units} 8.0 pH to non-numeric Health units results) System Glucose, UA NEGATIVE Normal (applies Glucose, UA [facility] to non-numeric Health results) System Negative Bilirubin Urine NEGATIVE Normal (applies Bilirubin Urine [facility] to non-numeric Health System results) Protein NEGATIVE Normal (applies Protein [facility] [Mass/volume] in to non-numeric Health S ystem Serum or Plasma results) Urobilinogen 0.20 {eu/dL} 0.20 Normal (applies Urobilinogen UA [facility] [Mass/volume] in - to non-numeric Health S yste Urine 1.00 results) eu/dL Ketones TRACE Normal (applies Ketones UA [facility] [Mass/volume] in to non-numeric Health S ystem Urine results) Negative Nitrate+Nitrite NEGATIVE Normal (applies to Nitrite Elpidio tabitha Health [Mass/volume] in non-numeric results) Sy stem Unspecified specimen Negative Leukocyte esterase NEGATIVE Normal (applies Leukocyte Beatris ase [facility] [Units/volume] in to non-numeric Concentration Hea lt System Urine results) Negative Red Blood Cells 0-2 Normal (applies Red Blood Cells [facility] to non-numeric Health System results) Leukocytes 0-2 Normal (applies White Blood [facility] [#/volume] in to non-numeric Cells Health Syst em Unspecified results) specimen by Automated count Urine Blood NEGATIVE Negative Normal (applies Urine Blood [facility] to non-numeric Health System results) Bacteria mod Normal (applies Bacteria [facility] [Presence] in to non-numeric Health Syst em Unspecified results) specimen Epithelial cells few Normal (applies Epithelial Cells [facility] [Presence] in to non-numeric Health Syst em Unspecified results) specimen by Wet preparation ID Date Data Source [id number] 06/05/2011 07:44:51 PM EST [facility] Name Value Range Interpretation Description Data Sup porting Code Source(s) Document(s ) Direct Negative Normal (applies Direct [facility] Antiglobulin to non-numeric Antiglobulin Health Test. results) Test. System ID Date Data Source [id number] 06/05/2011 07:44:51 PM EST [facility] Name Value Range Interpretation Description Data Sup porting Code Source(s) Document(s ) Type O Normal (applies Type [facility] to non-numeric Health System results) Antibody Negative Normal (applies Antibody [facility] Screen to non-numeric Screen Health System results) D Ab Rh Positive Normal (applies Rh Factor, [facility] [Titer] in to non-numeric Whole Blood Health Syste m Serum or results) Plasma ID Date Data Source [id number] 06/05/2011 07:44:51 PM EST [facility] Name Value Range Interpretation Description Data Sup porting Code Source(s) Document(s ) Specific Greater Normal (applies Urine [facility] gravity of than to non-numeric Specific Health Urine =1.030 results) [place] System Color YELLOW YELLOW Normal (applies Color [facility] to non-numeric Health results) System Appearance of CLEAR CLEAR Normal (applies Urine [facility] Urine to non-numeric Appearance Health results) System pH.. 5.5 4.6 - Normal (applies pH.. [facility] {pH_units} 8.0 pH to non-numeric Health units results) System Glucose, UA NEGATIVE Normal (applies Glucose, UA [facility] to non-numeric Health results) System Negative Protein NEGATIVE Normal (applies Protein [facility] [Mass/volume] in to non-numeric Health S yste Serum or Plasma results) Bilirubin Urine NEGATIVE Normal (applies Bilirubin Urine [facility] to non-numeric Health System results) Urobilinogen 1.00 {eu/dL} 0.20 Normal (applies Urobilinogen UA [facility] [Mass/volume] in - to non-numeric Health S yste Urine 1.00 results) eu/dL Leukocytes 10-20 Normal (applies White Blood Cells Elpidio tabitha [#/volume] in to non-numeric Health Syst em Unspecified results) specimen by Automated count Nitrate+Nitrite NEGATIVE Normal (applies Nitrite [facility] [Mass/volume] in to non-numeric Health S yste Unspecified results) specimen Negative Leukocyte esterase TRACE Normal (applies to Leukocyte Es terase [facility] [Units/volume] in non-numeric Concentration Health System Urine results) Negative Red Blood Cells 20-50 Normal (applies to Red Blood Cells [facility] non-numeric results) System Ketones NEGATIVE Normal ([facility]ones [facility] [Mass/volume] in non-numeric results) Sy stem Urine Negative Urine Blood LARGE NEG Abnormal (applies Urine Blood [facility] to non-numeric System results) Bacteria [Presence] FEW Normal (applies to Bacteria [facility] in Unspecified non-numeric System specimen results) Epithelial cells FEW Normal (applies to Epithelial Megan ls [facility] [Presence] in non-numeric System Unspecified results) specimen by Wet preparation ID Date Data Source [id number] 06/05/2011 07:44:51 PM EST [facility] Name Value Range Interpretation Description Data Sup porting Code Source(s) Document(s ) aPTT in Blood 27.5 23.0 - Normal (applies Activated [facility] by {Second 33.0 to non-numeric Partial Health Coagulation s} Seconds results) Thromboplastin System assay Time ID Date Data Source [id number] 06/05/2011 07:44:51 PM EST [facility] Name Value Range Interpretation Description Data Sup porting Code Source(s) Document(s ) Prothrombin 10.50 9.54 - Normal (applies Prothrombin [facility] time (PT) 11.90 to non-numeric time (PT) Health results) System INR in Blood 0.98 10.70 - Below low normal INR Result [facility] by Coagulation {Ratio} 12.60 Health assay Ratio System Normal = 0.7-1.1Therapeutic = 2.0-3.0Mec hanical Heart = 3.0-4.5 ID Date Data Source [id number] 06/05/2011 07:44:51 PM EST [facility] Name Value Range Interpretation Description Data Sup porting Code Source(s) Document(s ) Erythrocytes 3.63 3.80 - Below low normal RBC Count [facility] [#/volume] in {10\\S\\6_ 5.20 Health Blood by uL} 10\\S\\6 System Automated count uL Leukocytes 9.1 4.8 - Normal (applies WBC Count [facility] [#/volume] in {10\\S\\3_ 10.8 to non-numeric Health Unspecified uL} 10\\S\\3 results) System specimen by uL Automated count Hemoglobin 11.8 12.0 - Below low normal Hemoglobin, [facility] [Mass/volume] in {gm/dL} 16.0 Whole Blood Health Blood gm/dL System Hematocrit 34.2 % 36.0 - Below low normal Hematocrit, [facility] [Volume 46.0 % Whole Blood Health Fraction] of System Blood Erythrocyte mean 94.2 fl 80.0 - Normal (applies MCV [facility] corpuscular 100.0 to non-numeric Health volume [Entitic fl results) System volume] by Automated count Erythrocyte mean 32.5 pg 26.0 - Normal (applies MCH [facility] corpuscular 34.0 pg to non-numeric Health hemoglobin results) System [Entitic mass] by Automated count Erythrocyte 12.3 % 11.5 - Normal (applies RDW [facility] distribution 14.5 % to non-numeric Health width [Entitic results) System volume] by Automated count Erythrocyte mean 34.5 33.0 - Normal (applies MCHC [facility] corpuscular {gm/dL} 37.0 to non-numeric Health hemoglobin gm/dL results) System concentration [Mass/volume] by Automated count Platelets 319 130 - Normal (applies Platelet [facility] [#/volume] in {10\\S\\3_ 400 to non-numeric Count Health Plasma by uL} 10\\S\\3 results) System Automated count uL Platelet mean 10.5 fl 7.4 - Above high MPV [facility] volume [Entitic 10.4 fl normal Health volume] in Blood System by Automated count Monocytes 0.9 Normal (applies Monocyte [facility] [#/volume] in {10\\S\\3_ to non-numeric Count Health Blood by Manual uL} results) System count Basophils 0.02 Normal (applies Basophil [facility] [#/volume] in {10\\S\\3_ to non-numeric Count Health Blood by uL} results) System Automated count Eosinophils 0.1 Normal (applies Eosinophil [facility] [#/volume] in {10\\S\\3} to non-numeric Count Blood Health Blood results) System Neutrophils 6.9 Normal (applies Absolute [facility] [#/volume] in {10\\S\\3_ to non-numeric Neutrophil Health Body fluid uL} results) Count System Lymphocyte 1.2 Normal (applies Lymphocyte [facility] Absolute {10\\S\\3_ to non-numeric Absolute Health uL} results) System Eosinophils/100 1 % 1 - 3 % Below low normal Eosinophil % Jaylan [facility] leukocytes in Health Unspecified System specimen Neutrophils/100 76.2 % Normal (applies Neutrophil % Elpidio tabitha leukocytes in to non-numeric Health Blood by results) System Automated count Monocytes/100 10 % 6 - 9 % Above high Monocyte % [facility] leukocytes in normal Health Blood System Lymphocytes 13 % 21 - 51 Below low normal Lymphocyte % [facility] [#/volume] in % Health Blood by System Automated count Basophils/100 0 % 0 - 1 % Normal (applies Basophil % [facility] leukocytes in to non-numeric Health Unspecified results) System specimen by Manual count ID Date Data Source [id number] 06/05/2011 07:44:51 PM EST [facility] Name Value Range Interpretation Description Data Sup porting Code Source(s) Document(s ) [facility] [address].62 Normal (applies hCG [facility] Quantitative {mIU/mL} to non-numeric Quantitative Health results) System APPROXIMATE GEST. AGE APPROXIMAT E HCG mIU/ML 0.2 - 1 week 5 - 50 1 - 2 weeks 50 - 500 2 - 3 weeks 100 - 5,000 3 - 4 weeks 500 - 10,000 4 - 5 weeks 1,000 - 50,000 5 - 6 weeks 10,000 - 100,000 6 - 8 weeks 15,000 - 200,000 8 - 12 weeks 10,000 - 100,000HCG levels between 5-25 mIU/mL ma y be indiviative of early . Correlation with other clinical findings and/or repeat of HCG quantitative testing recommened. ID Date Data Source [id number] 06/05/2011 07:44:51 PM EST [facility] System Name Value Range Interpretation Description Data Sup porting Code Source(s) Document(s ) Sodium 138 mmol/L 137 - Normal (applies Sodium, [facility] [Moles/volume] 145 to non-numeric Serum Health in Serum or mmol/L results) System Plasma Potassium 4.1 mmol/L 3.6 - Normal (applies Potassium, [facility] [Mass/volume] 5.0 to non-numeric Serum Health in Serum or mmol/L results) System Plasma Chloride 105 mmol/L 98 - Normal (applies Chloride, [facility] [Moles/volume] 107 to non-numeric Serum Health in Serum or mmol/L results) System Plasma Carbon dioxide, 20.0 mmol/L 22.0 - Below low CO2, Serum [facility] total 30.0 normal Health [Moles/volume] mmol/L System in Serum or Plasma Total Protein 7.8 mg/dl 6.3 - Normal (applies Total [facility] 8.2 to non-numeric Protein Health mg/dl results) System Glucose 100 mg/dL 65 - Normal (applies Glucose, [facility] [Mass/volume] 105 to non-numeric Serum Health in Serum or mg/dL results) System Plasma Urea nitrogen 11 mg/dl 7 - 18 Normal (applies Blood Urea [facility] [Mass/volume] mg/dl to non-numeric Nitrogen, Health in Serum or results) Serum System Plasma Creatinine 0.70 mg/dl 0.70 - Normal (applies Creatinine, [facility] [Mass/volume] 1.20 to non-numeric Serum Health in Serum or mg/dl results) System Plasma Alkaline 86 {IU/L} 38 - Normal (applies Alkaline [facility] phosphatase 126 to non-numeric Phosphatase, Health isoenzymes IU/L results) Serum System [Enzymatic activity/volume ] in Serum or Plasma by Heat stability Bilirubin.total 0.3 mg/dl 0.2 - Normal (applies Bilirubin, [facility] [Mass/volume] 1.3 to non-numeric Serum Total Health in Serum or mg/dl results) System Plasma I. Phosphorus 3.9 mg/dl 2.5 - Normal (applies I. [facility] 4.5 to non-numeric Phosphorus Health mg/dl results) System Albumin 4.4 {gm/dl} 3.9 - Normal (applies Albumin, [facility] [Mass/volume] 5.0 to non-numeric Serum Health in Serum or gm/dl results) System Plasma Aspartate 12 {IU/L} 5 - 40 Normal (applies Aspartate [facility] aminotransferas IU/L to non-numeric Transaminase Health e [Enzymatic results) , Serum System activity/volume ] in Serum or Plasma by With P-5'-P Alanine 12 {IU/L} 7 - 56 Normal (applies Alanine [facility] aminotransferas IU/L to non-numeric Aminotransfe Health e [Enzymatic results) rase, Serum System activity/volume ] in Serum or Plasma A/G Ratio 1.29 Normal (applies A/G Ratio [facility] to non-numeric Health results) System Calcium 9.7 mg/dl 8.4 - Normal (applies Calcium, [facility] [Mass/volume] 10.2 to non-numeric Total Serum Health in Serum or mg/dl results) System Plasma Anion gap in 13.00 mmol/L 8.00 - Above high Anion Gap [facility] Serum or Plasma 12.00 normal Health mmol/L System Urate 3.5 mg/dl 2.5 - Normal (applies Uric Acid, [facility] [Mass/volume] 7.5 to non-numeric Serum Health in Serum or mg/dl results) System Plasma Glomerular Greater than Normal (applies GFR [facility] filtration 60 eGFR will to non-numeric Health rate/1.73 sq provide results) System M.predicted clinicians [Volume with a more Rate/Area] in accurate Serum or Plasma indicator of by renal function Creatinine-base then the serum d formula creatinine. (CKD-EPI) The eGFR is automatically calculated from an empiric formula (endorsed by the [employer]) which incorporates age, sex, and race.Clinician s may notice surprisingly low GFR's with serum creatinine values within normal range- particularly in elderly women (with low muscle mass).In the hospital setting, the eGFR should add an element of safety in drug dosing, in assessing the risk of IV contrast administration , and in assessing vascular risk.The NKF staging system is as follows:Normal : eGFR >90 with no kidney markersStage 1: eGFR >90 with kidney markers*Stage 2: eGFR 60-89Stage 3: eGFR 30-59Stage 4: eGFR 15-29Stage 5: eGFR <15 (usually requiring dialysis)*Kian ers include: Proteinuria, Hematuria, abnormal imaging-studie s, or other blood or urine test abnormalities Procedure Social History Code Duration Value Status Description Data Source(s ) Smoking 03/21/2019 Denies Ever completed Denies Ever Smoked [place] 08:43:00 AM EST Smoked Medical C enter Smoking 03/21/2019 Denies Ever completed Denies Ever Smoked [place] 08:33:00 AM EST Smoked Medical C enter Smoking 03/21/2019 Denies Ever completed Denies Ever Smoked [place] 08:24:00 AM EST Smoked Medical C enter Smoking Unknown if ever completed Unknown if ever eCW2 (Planned [facility] [employer]) Smoking Unknown if ever completed Unknown if ever eCW2 (Planned smoked [facility] [employer] [employer]) Smoking Never Smoker completed Never Smoker eCW2 (Plan darrin [facility] [employer]) Smoking Unknown if ever completed Unknown if ever eCW2 (Planned smoked [facility] [employer]) Smoking Never Smoker completed Never Smoker eCW2 (Plan darrin [facility] [employer] [employer]) Vital Signs ID Date Data Source UNK Name Value Range Interpretation Code Description Data Source(s) Diastolic blood 66 mm[Hg] 66 mm[Hg] eCW2 (Adam nned pressure [facility] [employer] [employer]) Systolic blood 98 mm[Hg] 98 mm[Hg] eCW2 (Plan darrin pressure [facility] [employer] [employer]) Body mass index 22.46 kg/m2 22.46 kg/m2 eCW2 (P lanned (BMI) [Ratio] [facility] [employer]) Body weight 135 [lb_av] 135 [lb_av] eCW2 (Plann ed Measured [facility] [employer] [employer]) Body height 65 [in_us] 65 [in_us] eCW2 ([facility] [employer] [employer]) Diastolic blood 84 mm[Hg] 84 mm[Hg] eCW2 (Adam nned pressure [facility] [employer] [employer]) Systolic blood 136 mm[Hg] 136 mm[Hg] eCW2 (Plan darrin pressure [facility] [employer] [employer]) Body mass index 22.46 kg/m2 22.46 kg/m2 eCW2 (P lanned (BMI) [Ratio] [facility] [employer]) Body weight 135 [lb_av] 135 [lb_av] eCW2 (Plann ed [facility] [employer]) Body height 65 [in_us] 65 [in_us] eCW2 ([facility] [employer] [employer]) Body weight 66.377425 66.688336 kg [facility] Measured kg [facility] Body temperature 36.949197 36.416094 [facility] Respiratory rate 19 /min 19 /min [facility] Oxygen saturation 99 % 99 % [facility] in Arterial blood [facility] by Pulse oximetry Heart rate 69 /min 69 /min [facility] Body height 165.588511 165.518438 cm [facility] Diastolic blood 66 mm[Hg] 66 mm[Hg] [facility] Systolic blood 106 mm[Hg] 106 mm[Hg] [facility] Body mass index 24.2 kg/m2 24.2 kg/m2 [facility] (BMI) [Ratio] Medical [facility] Diastolic blood 73 mm[Hg] 73 mm[Hg] eCW2 (Adam nned pressure [facility] [employer] [employer]) Systolic blood 109 mm[Hg] 109 mm[Hg] eCW2 (Plan darrin pressure [facility] [employer]) Body mass index 22.63 kg/m2 22.63 kg/m2 eCW2 (P lanned (BMI) [Ratio] [facility] [employer] [employer]) Body weight 136 [lb_av] 136 [lb_av] eCW2 (Plann ed [facility]asured [facility] [employer]) Body height 65 [in_us] 65 [in_us] eCW2 ([facility] [employer]) Diastolic blood 63 mm[Hg] 0 - 999 Below low normal 63 mm[Hg] [facility] Systolic blood 93 mm[Hg] 0 - 999 Below low normal 93 mm[Hg] [facility] Deprecated Oxygen 97 % 0 - 999 Normal (applies to 97 % [facility] saturation in non-numeric Health Sys tem Capillary blood results) by Oximetry Respiratory rate 16 0 - 999 Normal (applies to 16 [facility] non-numeric [facility] results) Heart rate 86 0 - 999 Normal (applies to 86 [facility] non-[facility] results) Body surface area 1.7 m2 1.7 m2 [facility] ore Derived from Health Syste m formula Body mass index 23 kg/m2 23 [facility]m2 [facility] ([facility] [Ratio] Health Syst em Body weight 64.86 kg 64.86 [facility] Body height 167.64 cm 167.64 cm [facility] Body temperature 98.6 [degF] 0 - 200 Normal (applies to 98.6 [degF ] [facility] non-numeric [facility] results) Body temperature 37 Megan 0 - 99.9 Normal (applies to 37 [facility] results) Body temperature 98 [degF] 0 - 200 Normal (applies to 98 [degF] [facility] non-numeric [facility] System results) Body temperature 36.6 Megan 0 - 99.9 Normal (applies to 36.6 Megan [facility] non-numeric Health System results) Diastolic blood 76 mm[Hg] 0 - 999 Normal (applies to 76 mm[Hg] [facility] pressure non-numeric [facility] System results) Systolic blood 123 mm[Hg] 0 - 999 Normal (applies to 123 mm[Hg] [facility] pressure non-numeric [facility] System results) Deprecated Oxygen 100 % 0 - 999 Normal (applies to 100 % [facility] saturation in non-numeric Health Sys tem Capillary blood results) by Oximetry Respiratory rate 17 0 - 999 Normal (applies to 17 [facility] non-numeric [facility] results) Heart rate 65 0 - 999 Normal (applies to 65 [facility] non-numeric [facility] results) Last menstrual [facility] period start date Health System Body surface area 1.6 m2 1.6 m2 [facility] ore Derived from Health Syste m formula Body mass index 23.2 kg/m2 23.2 kg/m2 [facility] (BMI) [Ratio] Health Syst em Body weight 63.5 kg 63.5 kg [facility] Measured [facility] Body height 165.1 cm 165.1 cm [facility] Patient Treatment Plan of Care Planned Activity Planned Date Details Description Data Source (s) Liletta (52 MG) 18.6 12/07/2019 eCW2 (P lanned MCG/DAY 12:00:00 AM [facility] Sodium Chloride 0.0342 06/21/2018 [facility] Morphy MEQ/ML Nasal [place] 09:35:20 PM EST System Acetaminophen 500 MG Oral 06/21/2018 [facility] Tablet 09:34:05 PM EST System Docusate Sodium 100 MG Oral 06/28/2017 [facility] Health Capsule [Colace] 11:54:45 AM EST System ferrous sulfate 325 MG Oral 06/28/2017 [facility] Health Tablet 11:54:27 AM EST System Ibuprofen 600 MG Oral 06/28/2017 [facility] Tablet 11:54:15 AM EST System Concept DHA oral capsule 10[facility]24[facility] 07:14:58 PM EDT System Prena1 True plus DHA oral 10/24/2016 [facility] kit 07:13:28 PM EDT System Phenazopyridine [place] s hydrochloride 100 MG Oral Me [facility]ical Center Tablet Sulfamethoxazole 800 MG / Sa int [facility]ene Trimethoprim 160 MG Oral Med ical Center Tablet 1 oral capsule [facility] System
== END 2020-02-06 17:15 | disposition home or self-care (01) ==
LOC: FASU 13:13
PROVIDERS: ATTEND Orthopaedic Surgery Hand Surgery
PROC: 0PSV34Z Reposition Left Finger Phalanx with Internal Fixation Device, Percutaneous Approach (ICD-10-PCS; principal; 2020-02-06 15:24)
DX: S62.623A Displaced fracture of middle phalanx of left middle finger, initial encounter for closed fracture (principal); S62.613A Displaced fracture of proximal phalanx of left middle finger, initial encounter for closed fracture; X58.XXXA Exposure to other specified factors, initial encounter; Y93.9 Activity, unspecified; Y92.9 Unspecified place or not applicable
CPT/HCPCS: 73140-TC-LT-FY; 84703; 94760

== ENCOUNTER 2022-07-24 13:47 | Emergency (ER) | payer OTHER ==
[2022-07-24 13:50] VITALS: BP 110/68; PULSE 89; RESP 18; TEMP 98; BMI 25.6
== END 2022-07-24 14:10 | disposition left against medical advice (07) ==
LOC: JER 13:47
DX: R11.10 Vomiting, unspecified (principal); R53.1 Weakness; R10.9 Unspecified abdominal pain
CPT/HCPCS: 99281-25